=== PATIENT | male | born 1960 | race African-American/Black ===

== ENCOUNTER 2016-10-08 10:59 | Emergency (ER) | payer MEDICAID ==
[2016-10-08 12:15] LABS: UDS - AMPHET NEGATIVE QUAL (NEGATIVE); UDS - BARB NEGATIVE QUAL (NEGATIVE); UDS - BENZO NEGATIVE QUAL (NEGATIVE); UDS - COCAINE NEGATIVE QUAL (NEGATIVE); UDS - METH NEGATIVE QUAL (NEGATIVE); UDS - OPIATE NEGATIVE QUAL (NEGATIVE); UDS - PCP NEGATIVE QUAL (NEGATIVE); UDS - THC POSITIVE QUAL (NEGATIVE)
== END 2016-10-08 12:43 | disposition home or self-care (01) ==
LOC: D.ER 10:59
PROVIDERS: Physician Assistant
DX: F41.9 Anxiety disorder, unspecified (principal); F19.10 Other psychoactive substance abuse, uncomplicated

== ENCOUNTER 2016-12-12 09:49 | Emergency (ER) | payer MEDICAID ==
[2016-12-12 11:13] LABS: BASOPHILS 0.2 % (0-2); EOSINOPHILS 0.5 % (0-7); HEMATOCRIT 48.8 % (42.0-54.0); HEMOGLOBIN 16.4 g/dL (13.5-17.5); IMMATURE GRANULOCYTES 0.3 % (0-5); LYMPHOCYTES 20.2 % (15-50); MCH 33.1 pg (26.0-34.0); MCHC 33.6 g/dL (31.0-37.0); MCV 98.4 fL (80.0-100.0); MEAN PLATELET VOLUME 8.9 fL (7.4-10.4); MONOCYTES 12.3 % (2-11); NEUTROPHILS 66.5 % (40-80); RBC 4.96 10x6/uL (4.20-6.10); WBC 5.8 10x3/uL (4.8-10.8)
[2016-12-12 11:14] LABS: PLATELET COUNT 261 10x3/uL (130-400)
[2016-12-12 11:17] LABS: APPEARANCE HAZY (CLEAR); BILIRUBIN NEGATIVE (NEGATIVE); COLOR YELLOW (YELLOW); GLUCOSE NEGATIVE (NEGATIVE); KETONE MODERATE mg/dL (NEGATIVE); LEUKOCYTE ESTERASE NEGATIVE (NEGATIVE); NITRITE NEGATIVE (NEGATIVE); PROTEIN NEGATIVE (NEGATIVE); SPECIFIC GRAVITY 1.025 (1.005-1.020); UROBILINOGEN NORMAL (NORMAL)
[2016-12-12 11:40] LABS: ALBUMIN 3.4 g/dL (3.4-5.0); ANION GAP 11.7 mmol/L (8-16); BILIRUBIN - TOTAL 0.43 mg/dL (0.2-1.3); CALCIUM 9.4 mg/dL (8.5-10.1); CARBON DIOXIDE 30.5 mmol/L (21.0-32.0); CREATININE - SERUM 1.3 mg/dL (0.6-1.3); POTASSIUM - SERUM 4.2 mmol/L (3.5-5.1)
[2016-12-12 11:45] LABS: UDS - AMPHET NEGATIVE QUAL (NEGATIVE); UDS - BARB NEGATIVE QUAL (NEGATIVE); UDS - BENZO NEGATIVE QUAL (NEGATIVE); UDS - COCAINE NEGATIVE QUAL (NEGATIVE); UDS - METH NEGATIVE QUAL (NEGATIVE); UDS - OPIATE POSITIVE QUAL (NEGATIVE); UDS - PCP NEGATIVE QUAL (NEGATIVE); UDS - THC POSITIVE QUAL (NEGATIVE)
[2016-12-12 11:54] LABS: AMYLASE - SERUM 72 U/L (25-115); CREATINE KINASE 105 UL (21-232); LIPASE 97 U/L (73-393); MAGNESIUM - SERUM 2.4 mg/dL (1.8-2.4); TROPONIN-I < 0.017 ng/mL (0.000-0.060)
== END 2016-12-12 14:08 | disposition home or self-care (01) ==
LOC: D.ER 09:49
PROVIDERS: Emergency Medicine
DX: R10.9 Unspecified abdominal pain (principal); R11.0 Nausea; F17.200 Nicotine dependence, unspecified, uncomplicated

== ENCOUNTER 2017-03-14 08:12 | Observation (INO) | payer MEDICAID ==
[~2017-03-14] VITALS: Ht 154.9 cm; Wt 56.7 kg
[2017-03-14 09:45] LABS: APPEARANCE CLEAR (CLEAR); BACTERIA FEW /hpf (NONE SEEN); BILIRUBIN NEGATIVE (NEGATIVE); COLOR YELLOW (YELLOW); EPITHELIAL CELLS 0-5 /hpf (0-5); GLUCOSE NEGATIVE (NEGATIVE); KETONE NEGATIVE (NEGATIVE); LEUKOCYTE ESTERASE TRACE (NEGATIVE); MUCUS >1+ /lpf (NONE SEEN); NITRITE NEGATIVE (NEGATIVE); PROTEIN NEGATIVE (NEGATIVE); SPECIFIC GRAVITY 1.015 (1.005-1.020); UROBILINOGEN NORMAL (NORMAL); WHITE CELLS - URINE 0-5 /hpf (0-5)
[2017-03-14 09:54] LABS: BASOPHILS 0 % (0-2); EOSINOPHILS 1.1 % (0-7); HEMATOCRIT 42.2 % (42.0-54.0); HEMOGLOBIN 14.2 g/dL (13.5-17.5); LYMPHOCYTES 24.4 % (15-50); MCH 32.2 pg (26.0-34.0); MCHC 33.6 g/dL (31.0-37.0); MCV 95.7 fL (80.0-100.0); MEAN PLATELET VOLUME 8.9 fL (7.4-10.4); MONOCYTES 12.7 % (2-11); NEUTROPHILS 61.8 % (40-80); PLATELET COUNT 228 10x3/uL (130-400); RBC 4.41 10x6/uL (4.20-6.10); RDW 13.3 % (11.5-14.5); WBC 4.4 10x3/uL (4.8-10.8)
[2017-03-14 10:08] LABS: ALBUMIN 2.8 g/dL (3.4-5.0); ALKALINE PHOSPHATASE 48 U/L (46-116); ALT (SGPT) 16 U/L (10-68); BILIRUBIN - TOTAL 0.35 mg/dL (0.2-1.3); CALC OSMOLALITY 274 mosm/kg (275-300); CALCIUM 8.4 mg/dL (8.5-10.1); CARBON DIOXIDE 26.8 mmol/L (21.0-32.0); CHLORIDE - SERUM 102 mmol/L (98-107); GLUCOSE 104 mg/dL (74-106); POTASSIUM - SERUM 3.9 mmol/L (3.5-5.1); SODIUM 138 mmol/L (136-145); UREA NITROGEN 9 mg/dL (7-18); eGFR NON AFRICAN AMERICAN 82 mL/min (90-120)
[2017-03-14 11:19] LABS: AMYLASE - SERUM 85 U/L (25-115); LIPASE 366 U/L (73-393)
[2017-03-14 16:00] VITALS: BP 114/79; BMI 23.6
[2017-03-14 20:00] VITALS: BP 123/85
[2017-03-15] VITALS: BP 120/84
--- NOTE | 2017-03-15 00:31 | NUR ---
PATIENT IS AWAKE, AND ALERT. DENIES NEEDS. RESPIRATIONS ARE EVEN AND UNLABORED ON ROOM AIR. NO SIGNS OF DISTRESS NOTED. BED IN LOWEST POSITION, CALL LIGHT IN REACH. BED RAILS UP X'S 2. CONTACT PRECAUTIONS MAINTAINED. ASLEEP IN BED BESIDE HIM.
[2017-03-15 03:47] VITALS: BP 100/61
[2017-03-15 05:17] LABS: BASOPHILS 0.2 % (0-2); IMMATURE GRANULOCYTES 0.2 % (0-5); LYMPHOCYTES 26.8 % (15-50); MCH 32.4 pg (26.0-34.0); MCHC 33.3 g/dL (31.0-37.0); MCV 97.3 fL (80.0-100.0); MEAN PLATELET VOLUME 9.2 fL (7.4-10.4); NEUTROPHILS 59.8 % (40-80); PLATELET COUNT 237 10x3/uL (130-400); RBC 4.01 10x6/uL (4.20-6.10); RDW 13.5 % (11.5-14.5); WBC 5.2 10x3/uL (4.8-10.8)
[2017-03-15 05:31] LABS: INR 0.88 (0.85-1.17); PROTIME 11.7 SECONDS (11.6-15.0)
[2017-03-15 05:41] LABS: ALBUMIN 2.5 g/dL (3.4-5.0); ANION GAP 12.8 mmol/L (8-16); BILIRUBIN - TOTAL 0.3 mg/dL (0.2-1.3); CALCIUM 8.1 mg/dL (8.5-10.1); CARBON DIOXIDE 25.1 mmol/L (21.0-32.0); CREATININE - SERUM 1.1 mg/dL (0.6-1.3); POTASSIUM - SERUM 3.9 mmol/L (3.5-5.1); PRE-ALBUMIN 26.8 mg/dL (18.0-35.7); PROTEIN - SERUM 4.9 g/dL (6.4-8.2)
--- NOTE | 2017-03-15 07:30 | NUR ---
REPORT RECEIVED FROM BUCK BARTH. CALL LIGHT I \N REACH.
--- NOTE | 2017-03-15 07:30 | NUR ---
REPORT RCEIVED FROM BODY MAKER MACHINE SETTER NURSE. CALL LIGHT IN REACH.
--- NOTE | 2017-03-15 08:36 | NUR ---
ASSESSMENT COMPLETED. NICOTINE PATCH TO LUQ. EXPLAINED ABOUT SCDs BUT REFUSES THEM. NPO FOR PIPIDA SCAN. ALSO EXPLAINED TO PATIENT ABOUT NOT HAVING PAIN MEDS BEFORE PIPIDA. HE VERBALIZED UNDERSTANDING. VERBALIZED UNDERSTANDING. VISITOR AT BEDSIDE. CALL LIGHT IN REACH. WILL CONTINUE WITH PLAN OF CARE.
[2017-03-15 08:42] VITALS: BP 111/75
--- NOTE | 2017-03-15 10:15 | NUR ---
PATIENT OFF FLOOR VIA WHEELCHAIR TO [employer]
[2017-03-15 15:10] VITALS: BP 116/83
[2017-03-15 15:35] VITALS: Ht 154.9 cm; Wt 56.7 kg
--- NOTE | 2017-03-15 19:15 | NUR ---
BEDSIDE REPORT RECEIVED AND CARE OF PT ASSUMED. PT LYING IN SUPINE POSITION WATCHING TV. IV IN LEFT WRIST PATENT WITH D5LR INFUSING AT 75 ML /HR. CONTACT ISOLATION PROTOCOLS IN PLACE. WILL MONITOR CLOSLEY FOR NEEDS.
[2017-03-15 20:00] VITALS: BP 114/73
--- NOTE | 2017-03-15 22:28 | NUR ---
GAVE MORPHINE PER PT REQUEST FOR PAIN AT LEVEL 5/10. WILL CONTINUE TO MONITOR FOR NEEDS.
--- NOTE | 2017-03-15 23:20 | NUR ---
PT SIGNED CONSENTS FOR AM PROCEDURE.
[2017-03-16] VITALS: BP 114/67
--- NOTE | 2017-03-16 | NUR ---
NPO STATUS BEGINS NOW. SIGNAGE ON DOOR.
[2017-03-16 04:00] VITALS: BP 120/80
[2017-03-16 05:58] LABS: BASOPHILS 0.2 % (0-2); EOSINOPHILS 1.1 % (0-7); HEMATOCRIT 36.2 % (42.0-54.0); HEMOGLOBIN 12.1 g/dL (13.5-17.5); IMMATURE GRANULOCYTES 0.2 % (0-5); LYMPHOCYTES 29.5 % (15-50); MCH 32.2 pg (26.0-34.0); MCHC 33.4 g/dL (31.0-37.0); MCV 96.3 fL (80.0-100.0); MEAN PLATELET VOLUME 8.9 fL (7.4-10.4); MONOCYTES 12.7 % (2-11); NEUTROPHILS 56.3 % (40-80); PLATELET COUNT 240 10x3/uL (130-400); RBC 3.76 10x6/uL (4.20-6.10); RDW 13.5 % (11.5-14.5); WBC 5.4 10x3/uL (4.8-10.8)
[2017-03-16 06:20] LABS: ALBUMIN 2.3 g/dL (3.4-5.0); ALKALINE PHOSPHATASE 39 U/L (46-116); ALT (SGPT) 12 U/L (10-68); CALC OSMOLALITY 273 mosm/kg (275-300); CARBON DIOXIDE 27.2 mmol/L (21.0-32.0); CHLORIDE - SERUM 105 mmol/L (98-107); CREATININE - SERUM 0.9 mg/dL (0.6-1.3); GLUCOSE 100 mg/dL (74-106); POTASSIUM - SERUM 4.2 mmol/L (3.5-5.1); SODIUM 138 mmol/L (136-145); UREA NITROGEN 8 mg/dL (7-18); eGFR NON AFRICAN AMERICAN > 90 mL/min (90-120)
--- NOTE | 2017-03-16 07:45 | NUR ---
PT ASSESSMENT PER FLOWSHEET NO ACUTE DISTRESS NOTED VOICES ALL NEEDS TO STAFF PT ON CONTACT ISOLATION FOR BED BUGS NPO AT THIS TIME FOR EGD THIS AM WITH TIVA SCHEDULED FOR 0900. CALL LIGHT IN REACH SIDE RAILS UP X 2.
[2017-03-16 08:09] VITALS: BP 117/77
[2017-03-16 08:18] LABS: HEPATITIS C ANTIBODY <0.1 (0.0-0.9)
[2017-03-16 09:17] LABS: CA 19-9 1 U/mL (0-35); CEA 3.6 ng/mL (0.0-4.7)
--- NOTE | 2017-03-16 09:45 | NUR ---
PT RETURNED TO ROOM FROM GI LAB AWAKE AND ALERT ORIENTED X 3 REMIANS IN CONTACT ISOLATION .
--- NOTE | 2017-03-16 11:00 | NUR ---
PT WITH DISCHARGE ORDERS ASKING FOR ASSISTANCE WITH TRANSPORT HOME REFERED TO CASE MANAGMENT.
[2017-03-16] MEDS ORDERED: PROTONIX40 MG PO (11:29)
[2017-03-16] MEDS ORDERED: CARAFATE1 G PO (11:29)
[2017-03-16 11:44] VITALS: BP 124/90
--- NOTE | 2017-03-16 12:30 | NUR ---
PATIENT SITTING UP ON SIDE OF BED ALERT. NO SIGNS OF DISTRESS NOTED. BED IN LOW POSITION. CALL LIGHT IN REACH.
--- NOTE | 2017-03-16 14:01 | NUR ---
PT GIVEN DISCHARGE INSTRUCTIONS WELL ALL EDUCATION ABOUT NEW MEDICATIONS. EXPRESSED UNDERSTANDING. PIV D/C INTACT DRESSING APPLIED. PT GIVEN BUS TICKET FOR PUBLIC TRANSPORT BUS PER REQUEST.
--- NOTE | 2017-03-18 13:53 | OP ---
PATIENT NAME: ROXANNE MYERS MEDICAL RECORD: [id number] :62 LOCATION:[id number] ADMISSION DATE:03/14/17 SURGEON: REYNOLD RICO MD DATE OF OPERATION: 03/16/2017 PROCEDURE: EGD with biopsy. ATTENDING PHYSICIAN: Katelyn Ramirez MD. INDICATIONS: Mr. Myers is a 57-year-old gentleman, who was admitted secondary to symptoms of nausea, vomiting, epigastric pain. He had an abdominal and pelvic CT scan on March 14 with findings showing a dilated main pancreatic duct concerning for stricture or mass. Liver function test, amylase and lipase were normal. Follow up abdominal MRI on 03/14/2017 showed mild prominent pancreatic duct without an identifiable stricture or mass in the region of the head of the pancreas. A gallbladder ultrasound on 03/15/2017 showed no sonographic evidence of cholelithiasis or cholecystitis and there is no intrahepatic biliary dilatation seen. Hepatobiliary scan with gallbladder ejection fraction on 03/15/2017 showed the bile ducts to be patent and the gallbladder ejection fraction mildly decreased at 31% (no reproduction of abdominal pain). He presents for inpatient EGD to further evaluate his symptoms of upper abdominal pain. PREMEDICATIONS: Total IV anesthesia (propofol 175 mg). INSTRUMENT: Olympus video gastroscope. PROCEDURE AND FINDINGS: After receiving informed consent, Mr. Myers's posterior pharynx was anesthetized with Cetacaine spray, placed in left lateral decubitus position and sedated as per anesthesia. After achieving adequate level of sedation, gastroscope was introduced per orally and advanced to the duodenum without difficulty. The esophageal mucosa was without erythema, ulcers, strictures or masses, appeared normal through the GE junction. There were a few erosions scattered in the antrum, nonhemorrhagic and antral biopsies were obtained to rule out Helicobacter pylori. No lesions were seen in the body of the stomach along the incisura or the cardia or fundus. Pylorus was patent and competent. The duodenal bulbar mucosa was notable for moderate erythema and at the apex of the bulb was a clean white based ulcer, nonhemorrhagic and nonobstructive. I was able to pass the gastroscope easily beyond the ulcer into the second portion of duodenum where the mucosa was unremarkable and appeared normal. Gastroscope was then withdrawn. Mr. Myers tolerated the procedure well. No immediate complications. ASSESSMENT: 1. Mild erosive gastritis. 2. Duodenitis. 3. Duodenal ulcer, likely source of abdominal pain, rule out Helicobacter pylori. RECOMMENDATIONS: 1. Avoid nonsteroidal anti-inflammatory drugs. 2. Protonix 40 mg p.o. b.i.d. for 1 month, then daily for 3 months. 3. Carafate 1 gram 4 times a day for 1 month and discontinue. 4. Follow up histopathology. 5. Advance diet. OPERATIVE REPORT [id number] ROXANNE MYERS TRANSINT:[id number] Voice Confirmation ID: [id number] DOCUMENT ID: [id number] REYNOLD RICO MD at 1353 CC: KATELYN RAMIREZ MD [id number] DICTATION DATE: 03/16/17 1020 STORE HOST: 03/16/172023 DIS IN 03/16/17 [facility] [address] [place] [address]
== END 2017-03-16 14:03 | disposition home or self-care (01) ==
LOC: D.ER 08:12 → OBSVTIME 14:41 → D.MS 14:41
PROVIDERS: Emergency Medicine; Internal Medicine Gastroenterology; ADMIT Family Medicine
DX: K29.60 Other gastritis without bleeding (principal); K29.80 Duodenitis without bleeding; K86.89 Other specified diseases of pancreas; K26.9 Duodenal ulcer, unspecified as acute or chronic, without hemorrhage or perforation

== ENCOUNTER 2017-05-30 03:31 | Emergency (ER) | payer MEDICAID ==
[2017-03-15 15:35] VITALS: BMI 23.6
[~2017-05-30 03:31] MED LIST: CARAFATE1 G PO; PROTONIX40 MG PO
[2017-05-30 04:27] LABS: BASOPHILS 0 % (0-2); EOSINOPHILS 1.5 % (0-7); HEMATOCRIT 41.8 % (42.0-54.0); HEMOGLOBIN 14.1 g/dL (13.5-17.5); IMMATURE GRANULOCYTES 0.2 % (0-5); LYMPHOCYTES 19.1 % (15-50); MCH 31.1 pg (26.0-34.0); MCHC 33.7 g/dL (31.0-37.0); MCV 92.1 fL (80.0-100.0); MEAN PLATELET VOLUME 9.1 fL (7.4-10.4); MONOCYTES 14.1 % (2-11); NEUTROPHILS 65.1 % (40-80); RBC 4.54 10x6/uL (4.20-6.10); RDW 15.2 % (11.5-14.5); WBC 5.2 10x3/uL (4.8-10.8)
[2017-05-30 04:28] LABS: PLATELET COUNT 294 10x3/uL (130-400)
[2017-05-30 04:29] LABS: UDS - AMPHET NEGATIVE QUAL (NEGATIVE); UDS - BARB NEGATIVE QUAL (NEGATIVE); UDS - BENZO NEGATIVE QUAL (NEGATIVE); UDS - COCAINE NEGATIVE QUAL (NEGATIVE); UDS - OPIATE NEGATIVE QUAL (NEGATIVE); UDS - PCP NEGATIVE QUAL (NEGATIVE); UDS - THC POSITIVE QUAL (NEGATIVE)
[2017-05-30 04:31] LABS: APPEARANCE CLEAR (CLEAR); BILIRUBIN NEGATIVE (NEGATIVE); COLOR YELLOW (YELLOW); GLUCOSE NEGATIVE (NEGATIVE); KETONE MODERATE mg/dL (NEGATIVE); NITRITE NEGATIVE (NEGATIVE); PROTEIN 1+ mg/dL (NEGATIVE); UROBILINOGEN NORMAL (NORMAL)
[2017-05-30 04:32] LABS: BACTERIA FEW /hpf (NONE SEEN); EPITHELIAL CELLS 0-5 /hpf (0-5); MUCUS <1+ /lpf (NONE SEEN); RED CELLS - URINE 0-5 /hpf (0-5); WHITE CELLS - URINE 0-5 /hpf (0-5)
[2017-05-30 04:53] LABS: ALBUMIN 3.6 g/dL (3.4-5.0); ALKALINE PHOSPHATASE 69 U/L (46-116); ALT (SGPT) 21 U/L (10-68); AMYLASE - SERUM 67 U/L (25-115); BILIRUBIN - TOTAL 0.77 mg/dL (0.2-1.3); CALC OSMOLALITY 273 mosm/kg (275-300); CARBON DIOXIDE 28.4 mmol/L (21.0-32.0); CHLORIDE - SERUM 97 mmol/L (98-107); GLUCOSE 103 mg/dL (74-106); LIPASE 125 U/L (73-393); POTASSIUM - SERUM 3.9 mmol/L (3.5-5.1); SODIUM 137 mmol/L (136-145); UREA NITROGEN 12 mg/dL (7-18); eGFR NON AFRICAN AMERICAN 82 mL/min (90-120)
== END 2017-05-30 06:29 | disposition home or self-care (01) ==
LOC: D.ER 03:31
PROVIDERS: Family Medicine
DX: K29.00 Acute gastritis without bleeding (principal); F17.200 Nicotine dependence, unspecified, uncomplicated

== ENCOUNTER 2017-07-18 10:46 | Emergency (ER) | payer MEDICAID ==
[2017-03-15 15:35] VITALS: BMI 23.6
== END 2017-07-18 14:20 | disposition home or self-care (01) ==
LOC: D.ER 10:46
DX: M54.5 Low back pain (principal); Z87.19 Personal history of other diseases of the digestive system; F17.200 Nicotine dependence, unspecified, uncomplicated

== ENCOUNTER 2017-09-18 20:10 | Emergency (ER) | payer MEDICAID ==
[2017-03-15 15:35] VITALS: BMI 23.6
[2017-09-18 20:53] LABS: BASOPHILS 0.1 % (0-2); EOSINOPHILS 0.2 % (0-7); HEMATOCRIT 41.7 % (42.0-54.0); HEMOGLOBIN 13.9 g/dL (13.5-17.5); IMMATURE GRANULOCYTES 0.2 % (0-5); MCHC 33.3 g/dL (31.0-37.0); MCV 93.1 fL (80.0-100.0); MEAN PLATELET VOLUME 8.7 fL (7.4-10.4); MONOCYTES 9.3 % (2-11); NEUTROPHILS 76.2 % (40-80); RBC 4.48 10x6/uL (4.20-6.10); WBC 8.5 10x3/uL (4.8-10.8)
[2017-09-18 21:08] LABS: ANION GAP 16.9 mmol/L (8-16); BILIRUBIN - TOTAL 0.55 mg/dL (0.2-1.3); CALCIUM 8.3 mg/dL (8.5-10.1); CARBON DIOXIDE 24.5 mmol/L (21.0-32.0); CREATININE - SERUM 1.3 mg/dL (0.6-1.3); POTASSIUM - SERUM 4.4 mmol/L (3.5-5.1); PROTEIN - SERUM 6.1 g/dL (6.4-8.2)
[2017-09-18 21:23] LABS: PLATELET COUNT 213 10x3/uL (130-400)
== END 2017-09-18 23:00 | disposition home or self-care (01) ==
LOC: D.ER 20:10
PROVIDERS: Emergency Medicine
DX: R10.13 Epigastric pain (principal); R10.12 Left upper quadrant pain; F17.200 Nicotine dependence, unspecified, uncomplicated

== ENCOUNTER 2017-09-27 00:58 | Emergency (ER) | payer MEDICAID ==
[2017-03-15 15:35] VITALS: BMI 23.6
== END 2017-09-27 01:30 | disposition left against medical advice (07) ==
LOC: D.ER 00:58
DX: K08.89 Other specified disorders of teeth and supporting structures (principal)

== ENCOUNTER 2017-10-30 20:25 | Emergency (ER) | payer MEDICAID ==
[2017-03-15 15:35] VITALS: BMI 23.6
[2017-10-30 20:48] LABS: APPEARANCE CLEAR (CLEAR); BILIRUBIN NEGATIVE (NEGATIVE); COLOR YELLOW (YELLOW); GLUCOSE NEGATIVE (NEGATIVE); KETONE NEGATIVE (NEGATIVE); NITRITE NEGATIVE (NEGATIVE); PROTEIN NEGATIVE (NEGATIVE); UROBILINOGEN NORMAL (NORMAL)
[2017-10-30 21:21] LABS: BASOPHILS 0.4 % (0-2); EOSINOPHILS 1.2 % (0-7); HEMATOCRIT 34.8 % (42.0-54.0); HEMOGLOBIN 11.3 g/dL (13.5-17.5); IMMATURE GRANULOCYTES 0.2 % (0-5); LYMPHOCYTES 23.6 % (15-50); MCH 29.4 pg (26.0-34.0); MCHC 32.5 g/dL (31.0-37.0); MCV 90.6 fL (80.0-100.0); MEAN PLATELET VOLUME 8.5 fL (7.4-10.4); MONOCYTES 8.9 % (2-11); NEUTROPHILS 65.7 % (40-80); PLATELET COUNT 243 10x3/uL (130-400); RBC 3.84 10x6/uL (4.20-6.10); RDW 16.8 % (11.5-14.5)
[2017-10-30 21:31] LABS: ALBUMIN 3.1 g/dL (3.4-5.0); ANION GAP 18.8 mmol/L (8-16); BILIRUBIN - TOTAL 0.2 mg/dL (0.2-1.3); CALCIUM 8.5 mg/dL (8.5-10.1); CARBON DIOXIDE 22.3 mmol/L (21.0-32.0); CREATININE - SERUM 1.2 mg/dL (0.6-1.3); POTASSIUM - SERUM 3.1 mmol/L (3.5-5.1); PROTEIN - SERUM 6.9 g/dL (6.4-8.2)
[2017-10-30 21:50] LABS: UDS - AMPHET NEGATIVE QUAL (NEGATIVE); UDS - BARB NEGATIVE QUAL (NEGATIVE); UDS - BENZO NEGATIVE QUAL (NEGATIVE); UDS - COCAINE POSITIVE QUAL (NEGATIVE); UDS - OPIATE POSITIVE QUAL (NEGATIVE); UDS - PCP NEGATIVE QUAL (NEGATIVE); UDS - THC POSITIVE QUAL (NEGATIVE)
== END 2017-10-30 23:05 | disposition home or self-care (01) ==
LOC: D.ER 20:25
PROVIDERS: Family Medicine
DX: F14.10 Cocaine abuse, uncomplicated (principal); E87.6 Hypokalemia; F17.200 Nicotine dependence, unspecified, uncomplicated

== ENCOUNTER 2017-11-23 08:21 | Emergency (ER) | payer MEDICAID ==
[2017-03-15 15:35] VITALS: BMI 23.6
[2017-11-23 08:53] LABS: BASOPHILS 0 % (0-2); EOSINOPHILS 0.2 % (0-7); HEMATOCRIT 41.9 % (42.0-54.0); HEMOGLOBIN 13.8 g/dL (13.5-17.5); IMMATURE GRANULOCYTES 0.2 % (0-5); MCH 29.7 pg (26.0-34.0); MCHC 32.9 g/dL (31.0-37.0); MCV 90.1 fL (80.0-100.0); MEAN PLATELET VOLUME 8.7 fL (7.4-10.4); NEUTROPHILS 82.6 % (40-80); PLATELET COUNT 246 10x3/uL (130-400); RBC 4.65 10x6/uL (4.20-6.10); RDW 16.8 % (11.5-14.5); WBC 10.1 10x3/uL (4.8-10.8)
[2017-11-23 09:10] LABS: ALBUMIN 3.4 g/dL (3.4-5.0); ANION GAP 18.2 mmol/L (8-16); BILIRUBIN - TOTAL 0.93 mg/dL (0.2-1.3); CALCIUM 8.7 mg/dL (8.5-10.1); CREATININE - SERUM 1.3 mg/dL (0.6-1.3); POTASSIUM - SERUM 4.2 mmol/L (3.5-5.1); PROTEIN - SERUM 7.3 g/dL (6.4-8.2)
[2017-11-23 10:16] LABS: APPEARANCE SLT CLOUDY (CLEAR); BACTERIA MODERATE /hpf (NONE SEEN); BILIRUBIN NEGATIVE (NEGATIVE); COLOR DK YELLOW (YELLOW); EPITHELIAL CELLS 0-5 /hpf (0-5); GLUCOSE NEGATIVE (NEGATIVE); KETONE LARGE mg/dL (NEGATIVE); MUCUS >1+ /lpf (NONE SEEN); NITRITE NEGATIVE (NEGATIVE); PROTEIN NEGATIVE (NEGATIVE); SPECIFIC GRAVITY 1.025 (1.005-1.020); UROBILINOGEN NORMAL (NORMAL)
== END 2017-11-23 11:08 | disposition home or self-care (01) ==
LOC: D.ER 08:21
PROVIDERS: Emergency Medicine
DX: R10.9 Unspecified abdominal pain (principal); N39.0 Urinary tract infection, site not specified; F17.200 Nicotine dependence, unspecified, uncomplicated

== ENCOUNTER 2018-05-31 08:44 | Emergency (ER) | payer MEDICAID ==
[~2018-05-31] VITALS: Ht 154.9 cm; Wt 54.5 kg
[2018-05-31 08:48] VITALS: Ht 154.9 cm; Wt 54.5 kg
[2018-05-31 09:10] LABS: BASOPHILS 0.2 % (0-2); EOSINOPHILS 0.6 % (0-7); HEMATOCRIT 35.7 % (42.0-54.0); HEMOGLOBIN 11.4 g/dL (13.5-17.5); LYMPHOCYTES 18.3 % (15-50); MCH 25.9 pg (26.0-34.0); MCHC 31.9 g/dL (31.0-37.0); MCV 81.1 fL (80.0-100.0); MEAN PLATELET VOLUME 8.2 fL (7.4-10.4); MONOCYTES 13.9 % (2-11); RDW 19.3 % (11.5-14.5)
[2018-05-31 09:22] LABS: PLATELET COUNT 305 10x3/uL (130-400)
[2018-05-31 09:25] LABS: APPEARANCE CLEAR (CLEAR); BACTERIA FEW /hpf (NONE SEEN); BILIRUBIN NEGATIVE (NEGATIVE); COLOR YELLOW (YELLOW); EPITHELIAL CELLS OCC /hpf (0-5); GLUCOSE NEGATIVE (NEGATIVE); HYALINE CAST 0-5 /lpf (NONE SEEN); KETONE NEGATIVE (NEGATIVE); MUCUS >1+ /lpf (NONE SEEN); NITRITE NEGATIVE (NEGATIVE); PROTEIN TRACE mg/dL (NEGATIVE); RED CELLS - URINE OCC /hpf (0-5); SPECIFIC GRAVITY 1.025 (1.005-1.020); UROBILINOGEN NORMAL (NORMAL); WHITE CELLS - URINE 0-5 /hpf (0-5)
[2018-05-31 09:33] LABS: ALBUMIN 3.7 g/dL (3.4-5.0); ANION GAP 16.9 mmol/L (8-16); BILIRUBIN - TOTAL 0.29 mg/dL (0.2-1.3); CALCIUM 9.2 mg/dL (8.5-10.1); CARBON DIOXIDE 23.3 mmol/L (21.0-32.0); CREATININE - SERUM 1.1 mg/dL (0.6-1.3); POTASSIUM - SERUM 4.2 mmol/L (3.5-5.1); PROTEIN - SERUM 7.3 g/dL (6.4-8.2)
[2018-05-31] MEDS ORDERED: CARAFATE1 G PO (13:35)
[2018-05-31] MEDS ORDERED: ZANTAC300 MG PO (13:35)
[2018-05-31] MEDS ORDERED: PROTONIX40 MG PO (13:35)
[2018-05-31] MEDS ORDERED: LEVSIN/ANASP0.125 MG PO (13:37)
[2018-05-31 14:17] VITALS: BP 139/99
== END 2018-05-31 14:10 | disposition home or self-care (01) ==
LOC: D.ER 08:44
PROVIDERS: Family Medicine
DX: R10.9 Unspecified abdominal pain (principal); F10.10 Alcohol abuse, uncomplicated; K29.20 Alcoholic gastritis without bleeding; K21.9 Gastro-esophageal reflux disease without esophagitis; F17.200 Nicotine dependence, unspecified, uncomplicated

== ENCOUNTER 2018-07-23 10:59 | Emergency (ER) | payer MEDICAID ==
[~2018-07-23] VITALS: Ht 154.9 cm; Wt 54.5 kg
[~2018-07-23 10:59] MED LIST changes: +LEVSIN/ANASP0.125 MG PO; +ZANTAC300 MG PO
[2018-07-23 11:08] VITALS: Ht 154.9 cm; Wt 54.5 kg
[2018-07-23 11:34] LABS: APPEARANCE HAZY (CLEAR); BACTERIA FEW /hpf (NONE SEEN); BILIRUBIN NEGATIVE (NEGATIVE); COLOR YELLOW (YELLOW); EPITHELIAL CELLS OCC /hpf (0-5); GLUCOSE NEGATIVE (NEGATIVE); KETONE MODERATE mg/dL (NEGATIVE); MUCUS >1+ /lpf (NONE SEEN); NITRITE NEGATIVE (NEGATIVE); PROTEIN NEGATIVE (NEGATIVE); RED CELLS - URINE RARE /hpf (0-5); SPECIFIC GRAVITY 1.025 (1.005-1.020); UROBILINOGEN NORMAL (NORMAL); WHITE CELLS - URINE RARE /hpf (0-5)
[2018-07-23 11:56] LABS: BASOPHILS 0.1 % (0-2); EOSINOPHILS 0.1 % (0-7); HEMATOCRIT 37.3 % (42.0-54.0); HEMOGLOBIN 11.9 g/dL (13.5-17.5); IMMATURE GRANULOCYTES 0.2 % (0-5); LYMPHOCYTES 8.4 % (15-50); MCH 26.5 pg (26.0-34.0); MCHC 31.9 g/dL (31.0-37.0); MCV 83.1 fL (80.0-100.0); MEAN PLATELET VOLUME 8.4 fL (7.4-10.4); MONOCYTES 8.6 % (2-11); NEUTROPHILS 82.6 % (40-80); PLATELET COUNT 307 10x3/uL (130-400); RBC 4.49 10x6/uL (4.20-6.10); RDW 20.9 % (11.5-14.5); WBC 10.8 10x3/uL (4.8-10.8)
[2018-07-23 12:09] LABS: ALBUMIN 3.6 g/dL (3.4-5.0); ALKALINE PHOSPHATASE 57 U/L (46-116); ALT (SGPT) 23 U/L (10-68); BILIRUBIN - TOTAL 0.58 mg/dL (0.2-1.3); CALC OSMOLALITY 269 mosm/kg (275-300); CALCIUM 8.8 mg/dL (8.5-10.1); CHLORIDE - SERUM 99 mmol/L (98-107); GLUCOSE 74 mg/dL (74-106); POTASSIUM - SERUM 4.6 mmol/L (3.5-5.1); SODIUM 135 mmol/L (136-145); UREA NITROGEN 15 mg/dL (7-18); eGFR NON AFRICAN AMERICAN 82 mL/min (90-120)
[2018-07-23 12:22] LABS: AMYLASE - SERUM 65 U/L (25-115); CREATINE KINASE 242 UL (21-232); LIPASE 107 U/L (73-393)
[2018-07-23 12:23] LABS: TROPONIN-I < 0.017 ng/mL (0.000-0.060)
[2018-07-23] MEDS ORDERED: PROTONIX40 MG PO (14:07)
[2018-07-23] MEDS ORDERED: CARAFATE1 G PO (14:07)
[2018-07-23 14:55] VITALS: BP 134/83
== END 2018-07-23 14:56 | disposition home or self-care (01) ==
LOC: D.ER 10:59
PROVIDERS: Family Medicine
DX: K29.70 Gastritis, unspecified, without bleeding (principal); R10.10 Upper abdominal pain, unspecified; F17.200 Nicotine dependence, unspecified, uncomplicated

== ENCOUNTER 2019-03-11 10:55 | Inpatient (IN) | payer MEDICAID ==
[~2019-03-11] VITALS: Ht 154.9 cm; Wt 54.0 kg
[2019-03-11 11:54] LABS: BASOPHILS 0.3 % (0-2); EOSINOPHILS 0.3 % (0-7); HEMATOCRIT 38.5 % (42.0-54.0); HEMOGLOBIN 12.5 g/dL (13.5-17.5); IMMATURE GRANULOCYTES 0.3 % (0-5); LYMPHOCYTES 19.4 % (15-50); MCHC 32.5 g/dL (31.0-37.0); MCV 80.2 fL (80.0-100.0); MONOCYTES 10.4 % (2-11); NEUTROPHILS 69.3 % (40-80); PLATELET COUNT 271 10x3/uL (130-400); RDW 20.1 % (11.5-14.5); WBC 7.6 10x3/uL (4.8-10.8)
[2019-03-11 12:15] LABS: ALBUMIN 2.9 g/dL (3.4-5.0); ALKALINE PHOSPHATASE 46 U/L (46-116); ALT (SGPT) 15 U/L (10-68); AMYLASE - SERUM 82 U/L (25-115); CALCIUM 8.4 mg/dL (8.5-10.1); CHLORIDE - SERUM 103 mmol/L (98-107); CREATININE - SERUM 1.2 mg/dL (0.6-1.3); LIPASE 483 U/L (73-393); POTASSIUM - SERUM 4.3 mmol/L (3.5-5.1); PROTEIN - SERUM 6.3 g/dL (6.4-8.2); SODIUM 137 mmol/L (136-145); UREA NITROGEN 12 mg/dL (7-18); eGFR NON AFRICAN AMERICAN 66 mL/min (90-120)
[2019-03-11 12:20] LABS: COLOR DK YELLOW (YELLOW)
[2019-03-11 12:21] LABS: APPEARANCE HAZY (CLEAR); BILIRUBIN NEGATIVE (NEGATIVE); CALC OSMOLALITY 274 mosm/kg (275-300); GLUCOSE 123 mg/dL (74-106); GLUCOSE NEGATIVE (NEGATIVE); KETONE SMALL mg/dL (NEGATIVE); NITRITE NEGATIVE (NEGATIVE); PROTEIN TRACE mg/dL (NEGATIVE); SPECIFIC GRAVITY 1.025 (1.005-1.020); TROPONIN-I < 0.017 ng/mL (0.000-0.060)
[2019-03-11 12:23] LABS: BACTERIA FEW /hpf (NONE SEEN); EPITHELIAL CELLS RARE /hpf (0-5); MUCUS >1+ /lpf (NONE SEEN); RED CELLS - URINE RARE /hpf (0-5); WHITE CELLS - URINE 0-5 /hpf (0-5)
--- NOTE | 2019-03-11 20:22 | NUR ---
REC'D PATIENT TO THE FLOOR FROM ER. NO S/S OF DISTRESS. PATIENT RESTING IN BED AND DENIES NEEDS AT THIS TIME. BED IN LOWEST POSITION AND CALL LIGHT WITHIN REACH. ENCOURAGED THE PATIENT TO CALL IF HE HAS NEEDS. WILL CONTINUE TO MONITOR.
[2019-03-11 22:57] VITALS: BP 122/86
[2019-03-12 02:59] VITALS: BP 122/86; BMI 21.7
[2019-03-12 05:52] VITALS: BP 133/95
[2019-03-12 07:18] LABS: BASOPHILS 0.3 % (0-2); EOSINOPHILS 1.3 % (0-7); HEMATOCRIT 33.5 % (42.0-54.0); HEMOGLOBIN 10.6 g/dL (13.5-17.5); IMMATURE GRANULOCYTES 0.1 % (0-5); LYMPHOCYTES 19.9 % (15-50); MCH 25.5 pg (26.0-34.0); MCHC 31.6 g/dL (31.0-37.0); MCV 80.7 fL (80.0-100.0); MEAN PLATELET VOLUME 7.9 fL (7.4-10.4); NEUTROPHILS 68.4 % (40-80); PLATELET COUNT 262 10x3/uL (130-400); RBC 4.15 10x6/uL (4.20-6.10); RDW 20.4 % (11.5-14.5); WBC 7.1 10x3/uL (4.8-10.8)
--- NOTE | 2019-03-12 07:30 | NUR ---
AWAKE AND ALERT. NO C/O AT THIS TIME. VSS.
[2019-03-12 07:34] LABS: ALBUMIN 2.3 g/dL (3.4-5.0); ALKALINE PHOSPHATASE 39 U/L (46-116); ALT (SGPT) 12 U/L (10-68); BILIRUBIN - TOTAL 0.25 mg/dL (0.2-1.3); CALC OSMOLALITY 275 mosm/kg (275-300); CALCIUM 7.5 mg/dL (8.5-10.1); CARBON DIOXIDE 23.9 mmol/L (21.0-32.0); CHLORIDE - SERUM 108 mmol/L (98-107); GLUCOSE 90 mg/dL (74-106); LIPASE 973 U/L (73-393); POTASSIUM - SERUM 3.9 mmol/L (3.5-5.1); SODIUM 139 mmol/L (136-145); eGFR NON AFRICAN AMERICAN 81 mL/min (90-120)
[2019-03-12 07:35] LABS: AMYLASE - SERUM 126 U/L (25-115); UREA NITROGEN 7 mg/dL (7-18)
[2019-03-12 07:36] VITALS: BP 131/86
--- NOTE | 2019-03-12 08:00 | NUR ---
AWAKE AND ALERT. ORIENTED X3. NO C/O AT THIS TIME EXCEPT BEING HUNGRY. LUNGS ARE CLEAR BILATERALLY, NO COUGH NOTED. SKIN IS INTACT WITHOUT REDNESS. IV TO RIGHT FOREARM IS PATENT WTIHOUT REDNESS AT INSERTION SITE. DENIES NEEDS.
--- NOTE | 2019-03-12 09:51 | MORECARE ---
CASE MANAGEMENT DISCHARGE SUMMARY PATIENT: ROXANNE MYERS UNIT: [id number] ADM DATE: 03/11/19 AGE: 59 : 62 SEX: M ROOM/BED: D.1203 AUTHOR: RAJIV,DOC PHYSICIAN: REFERRING PHYSICIAN: ANGIE SHAH MD DATE OF SERVICE: 03/12/19 Discharge Plan Patient Name: ROXANNE MYERS Facility: [facility]:[place] : 1960 Planned Disposition: Home Anticipated Discharge Date: Discharge Date: Expected LOS: Initial Reviewer: [email or web address] Initial Review Date: 03/12/2019 Generated: 03/12/19 10:51 am Comments DCP- Discharge Planning Updated by [email or web address]: Carmen Gillespie on 03/12/19 8:[address] Patient Name: ROXANNE MYERS Admission Status: ER Accout number: [id number] Admission Date: 03-11-2019 : 1960 Admission Diagnosis: Attending: OSVALDO SHAH Current LOS: 1 Anticipated DC Date: Planned Disposition: Home Primary Insurance: [employer] Discharge Planning Comments: CM met with patient to complete initial dc planning assessment. CM educated patient on the CM role and verbal consent given by patient to complete assessment. CM verified patient's address, phone number, and emergency contact phone numbers. Patient lives at home alone and reports he is independent in his care. At discharge patient plans to return home and feels this is a safe discharge. CM discussed availability of home health, rehab services, and medical equipment. Patient denied known discharge needs at this time.. . CM will continue to follow and will assist as needed with dc plans/needs. Cloth Printer Helper: Carmen GillespiePatient Name: ROXANNE MYERS Admission Status: ER Accout number: [id number] Admission Date: 03-11-2019 : 1960 Admission Diagnosis: Attending: OSVALDO SHAH Current LOS: 1 Anticipated DC Date: Planned Disposition: Home Primary Insurance: [employer] Discharge Planning Comments: Cloth Printer Helper: Carmen Gillespie DCPIA - Discharge Planning Initial Assessment Updated by [email or web address]: Carmen Gillespie on 03/12/19 9:44 am * Is the patient Alert and Oriented? Yes * How many steps to enter\exit or inside your home? * PCP none * Pharmacy [facility] * Preadmission Environment Home Alone * ADLs Independent * Verbal permission to speak to the caregivers and representatives has been obtained from the patient. N/A * Additional services required to return to the preadmission environment? No * Can the patient safely return to the preadmission environment? Yes * Has this patient been hospitalized within the prior 30 days at any hospital? No Patient Name: ROXANNE MYERS Page [phone] at 0951 All edits/amendments must be made on the electronic document DICTATION DATE: 03/12/19950 WET AND DRY SUGAR BIN OPERATOR: JOSEPHINE 03/12/19950 RPT#: [id number] DC DATE: STATUS: ADM IN [facility] [address] [place] [address] END OF REPORT
--- NOTE | 2019-03-12 11:15 | NUR ---
REQUESTED AND GIVEN 4MG MORPHINE SLOW IVP FOR C/O UPPER ABDOMINAL/CHEST PAIN LEVEL 8. WILL MONITOR.
[2019-03-12 12:25] VITALS: BP 123/90
--- NOTE | 2019-03-12 13:02 | NUR ---
URINE SPECIMEN COLLECTED AND SENT TO LAB.
[2019-03-12 13:39] VITALS: Ht 154.9 cm; Wt 54.0 kg
[2019-03-12 13:49] LABS: UDS - AMPHET NEGATIVE QUAL (NEGATIVE); UDS - BARB NEGATIVE QUAL (NEGATIVE); UDS - BENZO NEGATIVE QUAL (NEGATIVE); UDS - COCAINE NEGATIVE QUAL (NEGATIVE); UDS - OPIATE POSITIVE QUAL (NEGATIVE); UDS - PCP NEGATIVE QUAL (NEGATIVE); UDS - THC POSITIVE QUAL (NEGATIVE)
[2019-03-12 17:12] VITALS: BP 130/93
--- NOTE | 2019-03-12 17:12 | NUR ---
REQUESTED AND GIVEN 4MG MORPHINE SLOW IVP FOR C/O ABDOMINAL PAIN LEVEL 9. WILL MONITOR.
--- NOTE | 2019-03-12 17:52 | NUR ---
RESTING QUIETLY IN BED. DENIES NEEDS. NO CHANGES NOTED.
[2019-03-12 19:27] VITALS: BP 108/76
--- NOTE | 2019-03-12 19:45 | NUR ---
EVENING ROUNDS COMPLETED. VSS, AAOX3, NO S/S OF DISTRESS. PT C/O ABD PAIN. STATE ITS A 03/30 AT THIS TIME. NOTIFIED PT THAT PRN PAIN MED WILL BE ADMINISTERED WHEN DUE. PT STILL NPO. BANNA BAG INFUSING @ 125MLS/HR. WILL CPOC. CL WITHIN REACH.
[2019-03-13 00:21] VITALS: BP 119/78
[2019-03-13 05:10] VITALS: BP 113/65
[2019-03-13 06:08] LABS: BASOPHILS 0.2 % (0-2); EOSINOPHILS 1.7 % (0-7); HEMATOCRIT 30.8 % (42.0-54.0); HEMOGLOBIN 9.7 g/dL (13.5-17.5); IMMATURE GRANULOCYTES 0.2 % (0-5); LYMPHOCYTES 28.2 % (15-50); MCH 25.5 pg (26.0-34.0); MCHC 31.5 g/dL (31.0-37.0); MCV 80.8 fL (80.0-100.0); MONOCYTES 11.8 % (2-11); NEUTROPHILS 57.9 % (40-80); PLATELET COUNT 259 10x3/uL (130-400); RBC 3.81 10x6/uL (4.20-6.10); RDW 20.6 % (11.5-14.5)
[2019-03-13 06:25] LABS: ALKALINE PHOSPHATASE 31 U/L (46-116); BILIRUBIN - TOTAL 0.19 mg/dL (0.2-1.3); CALC OSMOLALITY 274 mosm/kg (275-300); CALCIUM 7.2 mg/dL (8.5-10.1); CARBON DIOXIDE 23.2 mmol/L (21.0-32.0); CHLORIDE - SERUM 109 mmol/L (98-107); CREATININE - SERUM 0.9 mg/dL (0.6-1.3); GLUCOSE 79 mg/dL (74-106); LIPASE 101 U/L (73-393); POTASSIUM - SERUM 3.8 mmol/L (3.5-5.1); PROTEIN - SERUM 4.4 g/dL (6.4-8.2); SODIUM 139 mmol/L (136-145); UREA NITROGEN 6 mg/dL (7-18); eGFR NON AFRICAN AMERICAN > 90 mL/min (90-120)
[2019-03-13 06:26] LABS: ALT (SGPT) 17 U/L (10-68); AMYLASE - SERUM 61 U/L (25-115)
[2019-03-13 06:34] LABS: WBC 4.8 10x3/uL (4.8-10.8)
[2019-03-13 07:58] VITALS: BP 128/90
--- NOTE | 2019-03-13 08:00 | NUR ---
PT RESTING IN BED, SHIFT ASSESSMENT PERFORMED. DENIES ANY NEEDS AT THIS TIME. WILL CONT TO FOLLOW POC
[2019-03-13 11:48] VITALS: BP 132/84
[2019-03-13] MEDS ORDERED: Nicoderm [PBKC] TRANSDERM (15:18)
--- NOTE | 2019-03-13 17:29 | NUR ---
DISCHARGE INSTRUCTIONS REVIEWED WITH PT AND ALL QUESTIONS ANSWERED. PIV REMOVED WITH CATHETER TIP INTACT. TELEMETRY REMOVED AND GIVEN TO CLINICAL STAFF EDUCATOR. ASSISTED PT TO FRONT OF HOSPITAL VIA WHEELCHAIR WHERE HE LEFT WITH FRIEND
--- NOTE | 2019-03-13 18:32 | MORECARE ---
CASE MANAGEMENT DISCHARGE SUMMARY PATIENT: ROXANNE MYERS UNIT: [id number] ADM DATE: 03/11/19 AGE: 59 : 62 SEX: M ROOM/BED: D.1203 AUTHOR: RAJIV,DOC PHYSICIAN: REFERRING PHYSICIAN: ANGIE SHAH MD DATE OF SERVICE: 03/13/19 Discharge Plan Patient Name: ROXANNE MYERS Facility: [facility]:[place] : 1960 Planned Disposition: Home Anticipated Discharge Date: Discharge Date: 03/13/2019 Expected LOS: Initial Reviewer: [email or web address] Initial Review Date: 03/12/2019 Generated: 03/13/19 7:32 pm DCP- Discharge Planning Updated by [email or web address]: Carmen Gillespie on 03/12/19 8:[address] Patient Name: ROXANNE MYERS Admission Status: ER Accout number: [id number] Admission Date: 03-11-2019 : 1960 Admission Diagnosis: Attending: OSVALDO SHAH Current LOS: 1 Anticipated DC Date: Planned Disposition: Home Primary Insurance: [employer] KRISTEL Discharge Planning Comments: CM met with patient to complete initial dc planning assessment. CM educated patient on the CM role and verbal consent given by patient to complete assessment. CM verified patient's address, phone number, and emergency contact phone numbers. Patient lives at home alone and reports he is independent in his care. At discharge patient plans to return home and feels this is a safe discharge. CM discussed availability of home health, rehab services, and medical equipment. Patient denied known discharge needs at this time.. . CM will continue to follow and will assist as needed with dc plans/needs. Political Theory Professor: Carmen GillespiePatient Name: ROXANNE MYERS Admission Status: ER Accout number: [id number] Admission Date: 03-11-2019 : 1960 Admission Diagnosis: Attending: OSVALDO SHAH Current LOS: 1 Anticipated DC Date: Planned Disposition: Home Primary Insurance: [employer]IONS [employer] Discharge Planning Comments: Political Theory Professor: Carmen Gillespie DCPIA - Discharge Planning Initial Assessment Updated by [email or web address]: Carmen Gillespie on 03/12/19 9:44 am * Is the patient Alert and Oriented? Yes * How many steps to enter\exit or inside your home? * PCP none * Pharmacy [facility] * Preadmission Environment Home Alone * ADLs Independent * Verbal permission to speak to the caregivers and representatives has been obtained from the patient. N/A * Additional services required to return to the preadmission environment? No * Can the patient safely return to the preadmission environment? Yes * Has this patient been hospitalized within the prior 30 days at any hospital? No Last DP export: 03/12/19 8:51 a Patient Name: ROXANNE MYERS Page [phone] at 1832 All edits/amendments must be made on the electronic document DICTATION DATE: 03/13/191831 BUSINESS SCHOOL DEAN: JOSEPHINE 03/13/191831 RPT#: [id number] DC DATE:03/13/19 STATUS: DIS IN [facility] [address] [place] [address] END OF REPORT
== END 2019-03-13 17:31 | disposition home or self-care (01) | DRG 439 ==
LOC: D.ER 10:55 → D.M3 18:47
PROVIDERS: Family Medicine; ADMIT Emergency Medicine; ATTEND Emergency Medicine
DX: K85.90 Acute pancreatitis without necrosis or infection, unspecified (principal); F17.213 Nicotine dependence, cigarettes, with withdrawal; K52.9 Noninfective gastroenteritis and colitis, unspecified; E86.0 Dehydration; F12.90 Cannabis use, unspecified, uncomplicated; K21.9 Gastro-esophageal reflux disease without esophagitis

== ENCOUNTER 2019-03-21 07:56 | Observation (INO) | payer MEDICAID ==
[2019-03-21] VITALS (9 sets, daily range): BP systolic 133–182; BP diastolic 82–102; BMI 22.5
[~2019-03-21] VITALS: Ht 154.9 cm; Wt 54.0 kg
[~2019-03-21 07:56] MED LIST changes: +Nicoderm [PBKC] TRANSDERM
--- NOTE | 2019-03-21 08:11 | NUR ---
URINE SPECIMEN OBTAINED, LABELED AT BS AND SENT TO LAB
[2019-03-21 08:39] LABS: APPEARANCE HAZY (CLEAR); COLOR YELLOW (YELLOW); SPECIFIC GRAVITY 1.025 (1.005-1.020)
[2019-03-21 08:42] LABS: BILIRUBIN NEGATIVE (NEGATIVE); EPITHELIAL CELLS 0-5 /hpf (0-5); GLUCOSE NEGATIVE (NEGATIVE); KETONE LARGE mg/dL (NEGATIVE); NITRITE NEGATIVE (NEGATIVE); PROTEIN TRACE mg/dL (NEGATIVE); RED CELLS - URINE OCC /hpf (0-5); UROBILINOGEN NORMAL (NORMAL); WHITE CELLS - URINE 0-5 /hpf (0-5)
[2019-03-21 08:43] LABS: BACTERIA FEW /hpf (NONE SEEN); HYALINE CAST 0-5 /lpf (NONE SEEN); MUCUS <1+ /lpf (NONE SEEN)
[2019-03-21 08:47] LABS: ALBUMIN 3.4 g/dL (3.4-5.0); ALKALINE PHOSPHATASE 63 U/L (46-116); ALT (SGPT) 20 U/L (10-68); BILIRUBIN - TOTAL 1.19 mg/dL (0.2-1.3); CALC OSMOLALITY 272 mosm/kg (275-300); CARBON DIOXIDE 19.8 mmol/L (21.0-32.0); CHLORIDE - SERUM 97 mmol/L (98-107); CREATININE - SERUM 1.2 mg/dL (0.6-1.3); PROTEIN - SERUM 6.8 g/dL (6.4-8.2); SODIUM 136 mmol/L (136-145); UREA NITROGEN 22 mg/dL (7-18); eGFR NON AFRICAN AMERICAN 66 mL/min (90-120)
[2019-03-21 08:49] LABS: GLUCOSE 70 mg/dL (74-106)
[2019-03-21 08:50] LABS: AMYLASE - SERUM 69 U/L (25-115); LIPASE 87 U/L (73-393); TROPONIN-I < 0.017 ng/mL (0.000-0.060)
[2019-03-21 08:52] LABS: BASOPHILS 0.2 % (0-2); EOSINOPHILS 0.3 % (0-7); HEMATOCRIT 39.7 % (42.0-54.0); HEMOGLOBIN 12.8 g/dL (13.5-17.5); IMMATURE GRANULOCYTES 0.3 % (0-5); LYMPHOCYTES 11.8 % (15-50); MCH 25.9 pg (26.0-34.0); MCHC 32.2 g/dL (31.0-37.0); MCV 80.4 fL (80.0-100.0); MEAN PLATELET VOLUME 8.3 fL (7.4-10.4); MONOCYTES 12.6 % (2-11); NEUTROPHILS 74.8 % (40-80); PLATELET COUNT 321 10x3/uL (130-400); RBC 4.94 10x6/uL (4.20-6.10); RDW 20.5 % (11.5-14.5); WBC 9.9 10x3/uL (4.8-10.8)
--- NOTE | 2019-03-21 10:26 | NUR ---
TO CT VIA STRETCHER WITH [employer]
--- NOTE | 2019-03-21 11:57 | NUR ---
PT C/O NAUSEA. MED PER PRN ORDERS
--- NOTE | 2019-03-21 12:19 | NUR ---
ATTEMPTED TO CALL REPORT, RN UNAVAILABLE
--- NOTE | 2019-03-21 13:01 | NUR ---
ATTEMPTED TO CALL REPORT RN UNAVAILABLE
--- NOTE | 2019-03-21 13:10 | NUR ---
REPORT CALLED TO BUCK GARCIA BY SBAR FORMAT
--- NOTE | 2019-03-21 13:11 | NUR ---
TRANSSPORTED TO ROOM #2106 CONDITION STABLE.
--- NOTE | 2019-03-21 13:25 | NUR ---
BROUGHT BY W/C FROM ER BUT HE ASKED IF HE CAN CLEAN HIS UPPER BODY FIRST BEFORE ANSWERING ANY QUESTIONS OR LETTING ME ASSESS HIM. I DID ASK HIM TO PLEASE NOT GET SALINE LOCK WET AND CALL WHEN HE IS READY. HE IS AT THE SINK AT THIS TIME
--- NOTE | 2019-03-21 13:56 | NUR ---
ALERT STATES HE IS READY NOW. ORIENT TO ROOM AND IS AWARE OF HOW TO USE CL. AMBULATES WITHOUT DIFF. SALINE LOCK IN RIGHT A/C CONNECTED WITH NS AT 125CC/HR RESP EVEN WITHOUT LABOR. BBS ARE CLEAR. ABDOMEN IS SOFT WITH BS IN ALL QUADS. STATES HE HAS BEEN HAVING LOOSE STOOLS AND VOMITING ON AND OFF SINCE MONDAY. HE IS TENDER IN LEFT UPPER QUAD. DENIES ANY CURRENT NEEDS.
[2019-03-21 14:30] LABS: % SATURATION 81 % (15-55); IRON 289 ug/dl (35-150); TOTAL IRON BIND CAPACITY 356 ug/dl (260-445); UNSAT IRON BIND CAPACITY 67 ug/dl (150-375)
[2019-03-21 14:31] LABS: APTT 25.2 SECONDS (22.8-39.4); INR 1.02 (0.85-1.17); PROTIME 12.9 SECONDS (11.6-15.0)
--- NOTE | 2019-03-21 14:46 | NUR ---
HE REFUSES SCD'S DUE TO HE USES BATHROOM AND DOES NOT WANT TO TANGLE UP IN THEM. VERBAL EDUCATION WAS DONE ON THERE USE.
[2019-03-21 15:25] LABS: UDS - AMPHET POSITIVE QUAL (NEGATIVE); UDS - BARB NEGATIVE QUAL (NEGATIVE); UDS - BENZO NEGATIVE QUAL (NEGATIVE); UDS - COCAINE POSITIVE QUAL (NEGATIVE); UDS - OPIATE POSITIVE QUAL (NEGATIVE); UDS - PCP NEGATIVE QUAL (NEGATIVE); UDS - THC POSITIVE QUAL (NEGATIVE)
--- NOTE | 2019-03-21 16:43 | NUR ---
HE DOES NOT WANT TELEMETRY ON AT THIS TIME. HE SAYS I ALREADY HAVE TO KEEP UP WITH THE IV.
--- NOTE | 2019-03-21 19:15 | NUR ---
PT ALERT AND ORIENTED. HAS RIGHT AC THAT IS PATENT AND INFUSING NS AT 125. PT REQUESTED A SHOWER. PROVIDED SHOWER PRODUCTS. DENIES PAIN AT THIS TIME. PROVIDED PATIENT WITH [employer] PER REQUEST. DENIES FURTHER ISSUES AT THIS TIME. HAS CALL LIGHT IN REACH AND PROVIDES RETURN DEMONSTRATION ON HOW TO USE EFFECTIVELY. REFUSES SCD'S AND TELEMTRY AT THIS TIME. CPOC.
[2019-03-22] VITALS: BP 135/88
[2019-03-22 03:52] LABS: BASOPHILS 0.2 % (0-2); EOSINOPHILS 1.3 % (0-7); HEMATOCRIT 32.8 % (42.0-54.0); HEMOGLOBIN 10.6 g/dL (13.5-17.5); IMMATURE GRANULOCYTES 0.2 % (0-5); LYMPHOCYTES 20.9 % (15-50); MCH 25.7 pg (26.0-34.0); MCHC 32.3 g/dL (31.0-37.0); MCV 79.6 fL (80.0-100.0); MEAN PLATELET VOLUME 7.9 fL (7.4-10.4); MONOCYTES 17.6 % (2-11); NEUTROPHILS 59.8 % (40-80); PLATELET COUNT 291 10x3/uL (130-400); RBC 4.12 10x6/uL (4.20-6.10); RDW 20.4 % (11.5-14.5)
[2019-03-22 03:53] LABS: WBC 4.5 10x3/uL (4.8-10.8)
[2019-03-22 04:00] VITALS: BP 130/87
[2019-03-22 04:04] LABS: CALC OSMOLALITY 267 mosm/kg (275-300); CALCIUM 7.8 mg/dL (8.5-10.1); CARBON DIOXIDE 19.6 mmol/L (21.0-32.0); CHLORIDE - SERUM 105 mmol/L (98-107); CREATININE - SERUM 0.8 mg/dL (0.6-1.3); GLUCOSE 83 mg/dL (74-106); POTASSIUM - SERUM 3.8 mmol/L (3.5-5.1); SODIUM 135 mmol/L (136-145); UREA NITROGEN 9 mg/dL (7-18); eGFR NON AFRICAN AMERICAN > 90 mL/min (90-120)
--- NOTE | 2019-03-22 07:00 | NUR ---
REPORT RECEIVED. HE IS ASLEEP AT THIS TIME. RESP EVEN WITHOUT LABOR. CL IN REACH. BED IN LOWEST POSITION AND LOCKED.
[2019-03-22 08:21] VITALS: BP 144/94
--- NOTE | 2019-03-22 10:30 | NUR ---
HE REFUSES TO WEAR TELEMETRY OR SCD'S. STATES HIS STOMACH DOES NOT HURT BAD TODAY. NO N/V OR LOOSE STOOLS NOTED
[2019-03-22 12:09] VITALS: BP 136/83
[2019-03-22 12:43] VITALS: Ht 154.9 cm; Wt 54.0 kg
[2019-03-22] MEDS ORDERED: CARAFATE1 G PO (12:57)
--- NOTE | 2019-03-22 16:30 | NUR ---
DISCHARGE INSTRUCTIONS EXPLAINED IN DETAIL TO HIM INCLUDING TO STOP DRUG USE. SALINE LOCK D/C WITH CATH TIP INTACT NO BLEEDING. HE IS AWARE TO GO GET NEW SCRIPT FOR CARAFATE. HE REFUSED W/C TRANSPORT AND LEFT WALKING TO ER EXIT TO CATCH THE NEXT BUS.
--- NOTE | 2019-03-22 17:06 | MORECARE ---
CASE MANAGEMENT DISCHARGE SUMMARY PATIENT: ROXANNE MYERS UNIT: [id number] ADM DATE: 03/21/19 AGE: 59 : 62 SEX: M ROOM/BED: D.2106 AUTHOR: BRYSON VANCE PHYSICIAN: REFERRING PHYSICIAN: LAMONTE BARLOW MD DATE OF SERVICE: 03/22/19 Discharge Plan Patient Name: ROXANNE MYERS Facility: [facility]:[place] : 1960 Planned Disposition: Home Anticipated Discharge Date: 03/22/19 Discharge Date: 03/22/2019 Expected LOS: 1 Initial Reviewer: [email or web address] Initial Review Date: 03/22/2019 Generated: 03/22/19 6:05 pm Patient Name: ROXANNE MYERS Page 62074 at 1706 All edits/amendments must be made on the electronic document DICTATION DATE: 03/22/191704 ENVIRONMENTAL ENGINEERING PROFESSOR: JOSEPHINE 03/22/191704 RPT#: [id number] DC DATE:03/22/19 STATUS: DIS IN [facility] [address] [place] [address] END OF REPORT
== END 2019-03-22 16:30 | disposition home or self-care (01) ==
LOC: D.ER 07:56 → D.M2 11:56 → OBSVTIME 12:12 → D.M2 03-22 16:30
PROVIDERS: Family Medicine; ADMIT Internal Medicine Nephrology; ATTEND Internal Medicine Nephrology
DX: K52.9 Noninfective gastroenteritis and colitis, unspecified (principal); D64.9 Anemia, unspecified; N17.9 Acute kidney failure, unspecified; K21.9 Gastro-esophageal reflux disease without esophagitis; F10.10 Alcohol abuse, uncomplicated; F17.203 Nicotine dependence unspecified, with withdrawal

== ENCOUNTER → 2019-04-19 12:19 | Outpatient (CLI) | payer OTHER ==
[2019-03-22 12:43] VITALS: BMI 22.4
== END | disposition home or self-care (01) ==
LOC: D.RAD 12:19
PROVIDERS: ATTEND Pediatrics
DX: M54.5 Low back pain (principal)

== ENCOUNTER 2019-04-19 21:17 | Emergency (ER) | payer MEDICAID ==
[~2019-04-19] VITALS: Ht 154.9 cm; Wt 52.3 kg
[2019-04-19 21:19] VITALS: Ht 154.9 cm; Wt 52.3 kg
[2019-04-19 21:53] LABS: ALBUMIN 2.9 g/dL (3.4-5.0); ANION GAP 19.5 mmol/L (8-16); BILIRUBIN - TOTAL 0.21 mg/dL (0.2-1.3); CALCIUM 7.9 mg/dL (8.5-10.1); CARBON DIOXIDE 19.1 mmol/L (21.0-32.0); CREATININE - SERUM 1.2 mg/dL (0.6-1.3); MAGNESIUM - SERUM 1.9 mg/dL (1.8-2.4); POTASSIUM - SERUM 3.6 mmol/L (3.5-5.1); PROTEIN - SERUM 5.8 g/dL (6.4-8.2)
[2019-04-19 22:06] LABS: BASOPHILS 0.1 % (0-2); EOSINOPHILS 0.2 % (0-7); HEMOGLOBIN 10.3 g/dL (13.5-17.5); IMMATURE GRANULOCYTES 0.4 % (0-5); LYMPHOCYTES 11.1 % (15-50); MCHC 32.2 g/dL (31.0-37.0); MCV 80.8 fL (80.0-100.0); MEAN PLATELET VOLUME 8.2 fL (7.4-10.4); MONOCYTES 8.9 % (2-11); NEUTROPHILS 79.3 % (40-80); PLATELET COUNT 240 10x3/uL (130-400); RBC 3.96 10x6/uL (4.20-6.10); RDW 20.6 % (11.5-14.5); WBC 8.9 10x3/uL (4.8-10.8)
[2019-04-19 23:27] LABS: APPEARANCE CLEAR (CLEAR); BILIRUBIN NEGATIVE (NEGATIVE); COLOR COLORLESS (YELLOW); GLUCOSE NEGATIVE (NEGATIVE); KETONE NEGATIVE (NEGATIVE); NITRITE NEGATIVE (NEGATIVE); PROTEIN NEGATIVE (NEGATIVE); SPECIFIC GRAVITY 1.005 (1.005-1.020); UROBILINOGEN NORMAL (NORMAL)
[2019-04-19 23:36] LABS: UDS - AMPHET POSITIVE QUAL (NEGATIVE); UDS - BARB NEGATIVE QUAL (NEGATIVE); UDS - BENZO NEGATIVE QUAL (NEGATIVE); UDS - COCAINE NEGATIVE QUAL (NEGATIVE); UDS - OPIATE POSITIVE QUAL (NEGATIVE); UDS - PCP NEGATIVE QUAL (NEGATIVE); UDS - THC POSITIVE QUAL (NEGATIVE)
[2019-04-20 00:42] VITALS: BP 132/85
== END 2019-04-20 00:43 | disposition home or self-care (01) ==
LOC: D.ER 21:17
PROVIDERS: Family Medicine
DX: F41.0 Panic disorder [episodic paroxysmal anxiety] (principal)

== ENCOUNTER 2019-04-20 01:01 | Emergency (ER) | payer MEDICAID ==
[~2019-04-20] VITALS: Ht 154.9 cm; Wt 52.2 kg
[2019-04-20 01:06] VITALS: Ht 154.9 cm; Wt 52.2 kg
[2019-04-20 06:49] VITALS: BP 132/70
== END 2019-04-20 06:50 | disposition home or self-care (01) ==
LOC: D.ER 01:01
DX: F15.129 Other stimulant abuse with intoxication, unspecified (principal)

== ENCOUNTER 2019-05-30 17:58 | Emergency (ER) | payer MEDICAID ==
[~2019-05-30] VITALS: Ht 154.9 cm; Wt 54.5 kg
[2019-05-30 18:06] VITALS: Ht 154.9 cm; Wt 54.5 kg
[2019-05-30 18:27] LABS: APPEARANCE HAZY (CLEAR); BILIRUBIN NEGATIVE (NEGATIVE); COLOR YELLOW (YELLOW); GLUCOSE NEGATIVE (NEGATIVE); KETONE NEGATIVE (NEGATIVE); NITRITE NEGATIVE (NEGATIVE); PROTEIN 1+ mg/dL (NEGATIVE); UDS - AMPHET NEGATIVE QUAL (NEGATIVE); UDS - BARB NEGATIVE QUAL (NEGATIVE); UDS - BENZO POSITIVE QUAL (NEGATIVE); UDS - COCAINE POSITIVE QUAL (NEGATIVE); UDS - OPIATE NEGATIVE QUAL (NEGATIVE); UDS - PCP NEGATIVE QUAL (NEGATIVE); UDS - THC POSITIVE QUAL (NEGATIVE); UROBILINOGEN NORMAL (NORMAL)
[2019-05-30 18:28] LABS: AMORPHOUS SEDIMENT >1+ /lpf (NONE SEEN); BACTERIA FEW /hpf (NEGATIVE); EPITHELIAL CELLS 0-5 /hpf (0-5); RED CELLS - URINE 0-5 /hpf (0-5); WHITE CELLS - URINE 0-5 /hpf (NEGATIVE)
[2019-05-30 18:37] LABS: BASOPHILS 1.3 % (0-2); EOSINOPHILS 0.9 % (0-7); HEMATOCRIT 34.6 % (42.0-54.0); HEMOGLOBIN 10.3 g/dL (13.5-17.5); IMMATURE GRANULOCYTES 0.9 % (0-5); LYMPHOCYTES 35.9 % (15-50); MCH 25.8 pg (26.0-34.0); MCHC 29.8 g/dL (31.0-37.0); MCV 86.5 fL (80.0-100.0); MEAN PLATELET VOLUME 8.2 fL (7.4-10.4); MONOCYTES 12.5 % (2-11); NEUTROPHILS 48.5 % (40-80); PLATELET COUNT 382 10x3/uL (130-400); RDW 18.5 % (11.5-14.5); WBC 8.6 10x3/uL (4.8-10.8)
[2019-05-30 18:53] LABS: ALBUMIN 3.3 g/dL (3.4-5.0); ANION GAP 30.2 mmol/L (8-16); BILIRUBIN - TOTAL 0.12 mg/dL (0.2-1.3); CARBON DIOXIDE 10.9 mmol/L (21.0-32.0); CREATININE - SERUM 1.5 mg/dL (0.6-1.3); MAGNESIUM - SERUM 2.4 mg/dL (1.8-2.4); POTASSIUM - SERUM 4.1 mmol/L (3.5-5.1); PROTEIN - SERUM 7.3 g/dL (6.4-8.2)
[2019-05-30 22:10] VITALS: BP 131/93
== END 2019-05-30 22:10 | disposition home or self-care (01) ==
LOC: D.ER 17:58
PROVIDERS: Family Medicine
DX: F14.90 Cocaine use, unspecified, uncomplicated (principal); F12.90 Cannabis use, unspecified, uncomplicated; F19.90 Other psychoactive substance use, unspecified, uncomplicated

== ENCOUNTER 2019-11-29 12:48 | Emergency (ER) | payer MEDICAID ==
[~2019-11-29] VITALS: Ht 154.9 cm; Wt 52.3 kg
[2019-11-29 12:58] VITALS: Ht 154.9 cm; Wt 52.3 kg
[2019-11-29 13:52] LABS: BASOPHILS 0.2 % (0-2); EOSINOPHILS 0.4 % (0-7); HEMATOCRIT 40.3 % (42.0-54.0); HEMOGLOBIN 12.3 g/dL (13.5-17.5); IMMATURE GRANULOCYTES 0.2 % (0-5); LYMPHOCYTES 24.8 % (15-50); MCH 26.7 pg (26.0-34.0); MCHC 30.5 g/dL (31.0-37.0); MCV 87.4 fL (80.0-100.0); MONOCYTES 8.7 % (2-11); NEUTROPHILS 65.7 % (40-80); PLATELET COUNT 325 10x3/uL (130-400); RBC 4.61 10x6/uL (4.20-6.10); RDW 19.2 % (11.5-14.5); WBC 4.8 10x3/uL (4.8-10.8)
[2019-11-29 13:59] LABS: CALC OSMOLALITY 275 mosm/kg (275-300); CALCIUM 8.4 mg/dL (8.5-10.1); CARBON DIOXIDE 23.5 mmol/L (21.0-32.0); CHLORIDE - SERUM 103 mmol/L (98-107); CREATININE - SERUM 1.2 mg/dL (0.6-1.3); GLUCOSE 118 mg/dL (74-106); POTASSIUM - SERUM 4.3 mmol/L (3.5-5.1); SODIUM 136 mmol/L (136-145); UREA NITROGEN 22 mg/dL (7-18); eGFR NON AFRICAN AMERICAN 66 mL/min (90-120)
[2019-11-29 14:08] LABS: ALBUMIN 3.6 g/dL (3.4-5.0); ALKALINE PHOSPHATASE 87 U/L (30-120); ALT (SGPT) 31 U/L (10-68); AMYLASE - SERUM 108 U/L (25-115); BILIRUBIN - TOTAL 0.25 mg/dL (0.2-1.3); LIPASE 192 U/L (73-393); PROTEIN - SERUM 7.8 g/dL (6.4-8.2)
[2019-11-29 14:13] LABS: TROPONIN-I < 0.017 ng/mL (0.000-0.060)
[2019-11-29 14:27] LABS: BILIRUBIN NEGATIVE (NEGATIVE); GLUCOSE NEGATIVE (NEGATIVE); KETONE NEGATIVE (NEGATIVE); NITRITE NEGATIVE (NEGATIVE); SPECIFIC GRAVITY 1.025 (1.005-1.020)
[2019-11-29 14:29] LABS: BACTERIA FEW /hpf (NEGATIVE); EPITHELIAL CELLS 0-5 /hpf (0-5); GRANULAR CAST RARE /lpf (NONE SEEN); HYALINE CAST 0-5 /lpf (NONE SEEN); RED CELLS - URINE OCC /hpf (0-5); WHITE CELLS - URINE OCC /hpf (NEGATIVE)
[2019-11-29] MEDS ORDERED: PROTONIX40 MG PO (14:44)
[2019-11-29] MEDS ORDERED: ZOFRAN ODT4 MG/UDTAB PO (14:44)
[2019-11-29] MEDS ORDERED: PEPCID40 MG PO (14:44)
[2019-11-29 15:20] VITALS: BP 123/86
== END 2019-11-29 15:21 | disposition home or self-care (01) ==
LOC: D.ER 12:48
PROVIDERS: Family Medicine
DX: K29.70 Gastritis, unspecified, without bleeding (principal); Z76.0 Encounter for issue of repeat prescription; R11.0 Nausea; M54.9 Dorsalgia, unspecified

== ENCOUNTER 2020-02-14 04:54 | Emergency (ER) | payer MEDICAID ==
[~2020-02-14] VITALS: Ht 154.9 cm; Wt 68.2 kg
[~2020-02-14 04:54] MED LIST changes: +PEPCID40 MG PO; +ZOFRAN ODT4 MG/UDTAB PO
[2020-02-14 05:11] VITALS: Ht 154.9 cm; Wt 68.2 kg
[2020-02-14 05:42] LABS: ANION GAP 19.3 mmol/L (8-16); CALCIUM 8.2 mg/dL (8.5-10.1); CARBON DIOXIDE 19.1 mmol/L (21.0-32.0); CREATININE - SERUM 1.1 mg/dL (0.6-1.3); POTASSIUM - SERUM 3.4 mmol/L (3.5-5.1)
[2020-02-14 05:49] LABS: BASOPHILS 0 % (0-2); EOSINOPHILS 0.3 % (0-7); HEMATOCRIT 31.8 % (42.0-54.0); HEMOGLOBIN 10.1 g/dL (13.5-17.5); LYMPHOCYTES 22.6 % (15-50); MCH 27.2 pg (26.0-34.0); MCHC 31.8 g/dL (31.0-37.0); MCV 85.5 fL (80.0-100.0); MONOCYTES 13.1 % (2-11); PLATELET COUNT 276 10x3/uL (130-400); RBC 3.72 10x6/uL (4.20-6.10); RDW 20.7 % (11.5-14.5); WBC 3.3 10x3/uL (4.8-10.8)
[2020-02-14 05:51] LABS: ALBUMIN 3.2 g/dL (3.4-5.0); BILIRUBIN - TOTAL 0.16 mg/dL (0.2-1.3); MAGNESIUM - SERUM 2.1 mg/dL (1.8-2.4); PROTEIN - SERUM 6.6 g/dL (6.4-8.2)
[2020-02-14 08:11] VITALS: BP 139/79
== END 2020-02-14 08:12 | disposition home or self-care (01) ==
LOC: D.ER 04:54
PROVIDERS: Family Medicine
DX: R41.82 Altered mental status, unspecified (principal); E87.6 Hypokalemia; F19.10 Other psychoactive substance abuse, uncomplicated

== ENCOUNTER 2020-04-16 15:22 | Emergency (ER) | payer MEDICAID ==
[~2020-04-16] VITALS: Ht 154.9 cm; Wt 51.4 kg
[2020-04-16 15:28] VITALS: Ht 154.9 cm; Wt 51.4 kg
[2020-04-16] MEDS ORDERED: HYDROCODON-ACE1 EAC7 PO (16:44)
[2020-04-16 17:55] VITALS: BP 120/81
== END 2020-04-16 18:41 | disposition home or self-care (01) ==
LOC: D.ER 15:22
DX: S30.0XXA Contusion of lower back and pelvis, initial encounter (principal); M54.5 Low back pain

== ENCOUNTER 2020-05-27 11:09 | Observation (INO) | payer MEDICAID ==
[~2020-05-27] VITALS: Ht 170.2 cm; Wt 50.0 kg
[~2020-05-27 11:09] MED LIST changes: +HYDROCODON-ACE1 EAC7 PO; +NICODERM CQ1 EAC3 TOPICAL
[2020-05-27] MEDS ORDERED: PROTONIX40 MG PO (11:18)
[2020-05-27 12:00] LABS: BASOPHILS 0.1 % (0-2); EOSINOPHILS 0.3 % (0-7); HEMATOCRIT 47.3 % (42.0-54.0); HEMOGLOBIN 15.6 g/dL (13.5-17.5); IMMATURE GRANULOCYTES 0.4 % (0-5); LYMPHOCYTES 14.9 % (15-50); MEAN PLATELET VOLUME 8.3 fL (7.4-10.4); MONOCYTES 9.9 % (2-11); NEUTROPHILS 74.4 % (40-80); PLATELET COUNT 305 10x3/uL (130-400); RDW 17.8 % (11.5-14.5); WBC 7.3 10x3/uL (4.8-10.8)
[2020-05-27 12:01] LABS: BACTERIA FEW HPF (NONE SEEN); BILIRUBIN NEGATIVE (NEGATIVE); EPITHELIAL CELLS 0-5 /hpf (0-5); KETONE MODERATE mg/dL (NEGATIVE); NITRITE NEGATIVE (NEGATIVE); UROBILINOGEN NORMAL mg/dL (< 2); WHITE CELLS - URINE NSEEN HPF (0-1)
[2020-05-27 12:03] LABS: GRANULAR CAST 0-5 LPF (NONE SEEN)
[2020-05-27 12:07] LABS: CALC OSMOLALITY 264 mosm/kg (275-300); CARBON DIOXIDE 20.5 mmol/L (21.0-32.0); CHLORIDE - SERUM 94 mmol/L (98-107); CREATININE - SERUM 1.6 mg/dL (0.6-1.3); GLUCOSE 101 mg/dL (74-106); POTASSIUM - SERUM 5.1 mmol/L (3.5-5.1); SODIUM 128 mmol/L (136-145); UREA NITROGEN 34 mg/dL (7-18); eGFR NON AFRICAN AMERICAN 47 mL/min (90-120)
[2020-05-27 12:16] LABS: ALBUMIN 4.1 g/dL (3.4-5.0); ALKALINE PHOSPHATASE 96 U/L (30-120); ALT (SGPT) 20 U/L (10-68); AMYLASE - SERUM 77 U/L (25-115); BILIRUBIN - TOTAL 0.44 mg/dL (0.2-1.3); LIPASE 77 U/L (73-393); TROPONIN-I < 0.017 ng/mL (0.000-0.060)
[2020-05-27 13:00] VITALS: BP 146/107
[2020-05-27 15:00] VITALS: BP 146/103
--- NOTE | 2020-05-27 17:40 | NUR ---
COVID SWAB COLLECTED ET TO LAB AT THIS TIME.
[2020-05-27 18:00] VITALS: BP 134/85
--- NOTE | 2020-05-27 19:00 | NUR ---
REPORT TO BUCK ROLDAN
--- NOTE | 2020-05-27 19:08 | NUR ---
PT GIVEN SPRITE TO DRINK, DENIES FURTHER NEEDS AT THIS TIME. CALL LIGHT IN REACH. WILL CONTINUE TO MONITOR.
[2020-05-27 19:21] VITALS: BP 141/96
--- NOTE | 2020-05-27 21:24 | NUR ---
PT RESTING EYES CLOSED, RR EVEN AND UNLABORED, PT ON MONITOR AND CALL LIGHT IN REACH.
[2020-05-27 21:31] VITALS: BP 147/96
--- NOTE | 2020-05-27 22:35 | NUR ---
PT RESTING WITH EYES CLOSED, PT AWAKES EASILY TO VERBAL STIMULI. PT DENIES ANY NEEDS AT THIS TIME. CALL LIGHT IN REACH. WILL CONTINUE TO MONITOR.
[2020-05-27 23:24] VITALS: BP 149/98
--- NOTE | 2020-05-27 23:24 | NUR ---
PT GIVEN BLANKET AND PILLOW. DENIES ANY FURTHER NEEDS. CALL LIGHT IN REACH. PT ON MONITOR.
[2020-05-28 00:25] VITALS: BP 135/87
--- NOTE | 2020-05-28 01:23 | NUR ---
500ML YELLOW URINE EMPTIED FROM PT'S URINAL. PT DENIES ANY NEEDS. PT ON MONITOR. CALL LIGHT IN REACH.
[2020-05-28 02:12] VITALS: BP 137/96
--- NOTE | 2020-05-28 03:29 | NUR ---
PT'S PROTONIX DRIP FINISHED AT THIS TIME. ANOTHER BAG STARTED AT SAME CONTINUOUS RATE PER ORDER.
[2020-05-28 04:00] VITALS: BP 142/92
[2020-05-28] MEDS ORDERED: PROZAC20 MG PO (06:18)
[2020-05-28 06:28] VITALS: Ht 170.2 cm; Wt 50.0 kg
[2020-05-28 07:19] LABS: BASOPHILS 0.2 % (0-2); EOSINOPHILS 0.8 % (0-7); HEMATOCRIT 39.4 % (42.0-54.0); HEMOGLOBIN 12.6 g/dL (13.5-17.5); IMMATURE GRANULOCYTES 0.2 % (0-5); LYMPHOCYTES 23.1 % (15-50); MCH 29.4 pg (26.0-34.0); MCV 92.1 fL (80.0-100.0); MEAN PLATELET VOLUME 8.2 fL (7.4-10.4); MONOCYTES 15.2 % (2-11); NEUTROPHILS 60.5 % (40-80); PLATELET COUNT 267 10x3/uL (130-400); RBC 4.28 10x6/uL (4.20-6.10); RDW 18.1 % (11.5-14.5)
[2020-05-28 07:22] LABS: WBC 4.9 10x3/uL (4.8-10.8)
[2020-05-28 07:24] LABS: ANION GAP 12.5 mmol/L (8-16); BILIRUBIN - TOTAL 0.51 mg/dL (0.2-1.3); CALCIUM 8.4 mg/dL (8.5-10.1); CARBON DIOXIDE 22.4 mmol/L (21.0-32.0); CREATININE - SERUM 1.3 mg/dL (0.6-1.3); MAGNESIUM - SERUM 2.2 mg/dL (1.8-2.4); POTASSIUM - SERUM 4.9 mmol/L (3.5-5.1)
[2020-05-28 07:27] LABS: ALBUMIN 2.9 g/dL (3.4-5.0); PROTEIN - SERUM 6.6 g/dL (6.4-8.2)
--- NOTE | 2020-05-28 09:19 | NUR ---
UPON DISCHARGE PATIENT HAS NOT HAD A FLU SHOT. WHEN QUESTIONED HE WANTS ONE. ORDERED.
[2020-05-28 10:17] VITALS: BP 117/83
--- NOTE | 2020-05-28 10:44 | MORECARE ---
CASE MANAGEMENT DISCHARGE SUMMARY PATIENT: TYLER MYERS UNIT: [id number] ADM DATE: 05/27/20 AGE: 60 : 62 SEX: M ROOM/BED: D.2107 AUTHOR: BRYSON VANCE PHYSICIAN: REFERRING PHYSICIAN: NEO WEBB MD DATE OF SERVICE: 05/28/20 Discharge Plan Patient Name: TYLER MYERS Facility: [facility]:[place] : 1960 Planned Disposition: Home Anticipated Discharge Date: 05/28/20 Discharge Date: Expected LOS: 1 Initial Reviewer: [email or web address] Initial Review Date: 05/27/2020 Generated: 05/28/20 11:43 am Patient Name: TYLER MYERS Page [phone] at 1044 All edits/amendments must be made on the electronic document DICTATION DATE: 05/28/20 1043 PUBLICITY AGENT: JOSEPHINE 05/28/20 1043 RPT#: [id number] DC DATE: STATUS: ADM IN [facility] [address] [place] [address] END OF REPORT
--- NOTE | 2020-05-28 12:05 | NUR ---
D/C LEFT AC PIV, TIP INTACT. FLU SHOT ADMINISTERED. DISCHARGE INSTRUCTIONS GIVEN VERBALLY AND HANDOUTS PROVIDED. PRESCRIPTION GIVEN TO PATIENT. PATIENT RIDE AT ER ENTRANCE. TAKEN VIA WHEELCHAIR, REMAINS FREE FROM INJURY.
== END 2020-05-28 11:50 | disposition home or self-care (01) ==
LOC: D.ER 11:09 → D.M2 18:01 → OBSVTIME 18:01 → D.EDHOLD 18:01 → D.M2 18:01
PROVIDERS: Family Medicine; ADMIT Family Medicine; ATTEND Family Medicine
DX: N17.9 Acute kidney failure, unspecified (principal); R10.9 Unspecified abdominal pain; R11.2 Nausea with vomiting, unspecified; E86.0 Dehydration; E87.1 Hypo-osmolality and hyponatremia; K52.9 Noninfective gastroenteritis and colitis, unspecified

== ENCOUNTER 2020-12-17 01:46 | Emergency (ER) | payer MEDICAID ==
[~2020-12-17] VITALS: Ht 170.2 cm; Wt 52.3 kg
[~2020-12-17 01:46] MED LIST changes: +PROZAC20 MG PO
[2020-12-17 01:48] VITALS: Ht 170.2 cm; Wt 52.3 kg
[2020-12-17 02:34] LABS: BASOPHILS 0.3 % (0-2); EOSINOPHILS 0.1 % (0-7); IMMATURE GRANULOCYTES 0.3 % (0-5); LYMPHOCYTE ABS# 1.28 10x3/uL (1.32-3.57); LYMPHOCYTES 18.7 % (15-50); MCHC 34.1 g/dL (31.0-37.0); MCV 93.8 fL (80.0-100.0); MEAN PLATELET VOLUME 8.5 fL (7.4-10.4); MONOCYTES 13.4 % (2-11); NEUTROPHIL ABS# 4.61 10x3/uL (1.78-5.38); NEUTROPHILS 67.2 % (40-80); RBC 4.69 10x6/uL (4.20-6.10); RDW 14.9 % (11.5-14.5); WBC 6.9 10x3/uL (4.8-10.8)
[2020-12-17 02:53] LABS: BILIRUBIN NEGATIVE (NEGATIVE); KETONE MODERATE mg/dL (NEGATIVE); NITRITE NEGATIVE (NEGATIVE); UROBILINOGEN NORMAL mg/dL (< 2)
[2020-12-17 02:54] LABS: PLATELET COUNT 372 10x3/uL (130-400)
[2020-12-17 02:54] LABS: BACTERIA FEW HPF (NONE SEEN); SQUAMOUS EPITHELIAL 0-5 HPF (0-4); WHITE CELLS - URINE 0-5 HPF (0-1)
[2020-12-17 02:55] LABS: CALC OSMOLALITY 264 mosm/kg (275-300); CALCIUM 9.3 mg/dL (8.5-10.1); CARBON DIOXIDE 25.4 mmol/L (21.0-32.0); CHLORIDE - SERUM 94 mmol/L (98-107); CREATININE - SERUM 1.3 mg/dL (0.6-1.3); GLUCOSE 101 mg/dL (74-106); SODIUM 131 mmol/L (136-145); UREA NITROGEN 19 mg/dL (7-18); eGFR NON AFRICAN AMERICAN 60 mL/min (90-120)
[2020-12-17 03:04] LABS: ALBUMIN 3.7 g/dL (3.4-5.0); ALKALINE PHOSPHATASE 79 U/L (30-120); ALT (SGPT) 24 U/L (10-68); BILIRUBIN - TOTAL 0.77 mg/dL (0.2-1.3); LIPASE 63 U/L (73-393); PROTEIN - SERUM 7.8 g/dL (6.4-8.2); TROPONIN-I < 0.017 ng/mL (0.000-0.060)
[2020-12-17] MEDS ORDERED: PEPCID40 MG PO (03:32)
[2020-12-17 04:47] VITALS: BP 169/98
== END 2020-12-17 04:47 | disposition home or self-care (01) ==
LOC: D.ER 01:46
PROVIDERS: Emergency Medicine
DX: R10.13 Epigastric pain (principal); R11.2 Nausea with vomiting, unspecified; K21.9 Gastro-esophageal reflux disease without esophagitis

== ENCOUNTER 2020-12-19 05:09 | Observation (INO) | payer MEDICAID ==
[~2020-12-19] VITALS: Ht 170.2 cm; Wt 68.2 kg
[2020-12-19 06:21] LABS: BASOPHILS 0.1 % (0-2); EOSINOPHILS 0.1 % (0-7); HEMATOCRIT 36.9 % (42.0-54.0); HEMOGLOBIN 12.8 g/dL (13.5-17.5); IMMATURE GRANULOCYTES 0.2 % (0-5); LYMPHOCYTE ABS# 0.73 10x3/uL (1.32-3.57); MCH 32.2 pg (26.0-34.0); MCHC 34.7 g/dL (31.0-37.0); MCV 92.7 fL (80.0-100.0); MEAN PLATELET VOLUME 8.7 fL (7.4-10.4); MONOCYTES 12.5 % (2-11); NEUTROPHIL ABS# 6.34 10x3/uL (1.78-5.38); NEUTROPHILS 78.1 % (40-80); PLATELET COUNT 313 10x3/uL (130-400); RBC 3.98 10x6/uL (4.20-6.10); RDW 14.9 % (11.5-14.5); WBC 8.1 10x3/uL (4.8-10.8)
[2020-12-19 06:30] LABS: CARBON DIOXIDE 22.4 mmol/L (21.0-32.0); CHLORIDE - SERUM 96 mmol/L (98-107); CREATININE - SERUM 2.8 mg/dL (0.6-1.3); POTASSIUM - SERUM 3.3 mmol/L (3.5-5.1); SODIUM 134 mmol/L (136-145); UREA NITROGEN 33 mg/dL (7-18); eGFR NON AFRICAN AMERICAN 25 mL/min (90-120)
[2020-12-19 06:36] LABS: ALBUMIN 3.3 g/dL (3.4-5.0); ALKALINE PHOSPHATASE 64 U/L (30-120); ALT (SGPT) 23 U/L (10-68); BILIRUBIN - TOTAL 0.27 mg/dL (0.2-1.3); PROTEIN - SERUM 6.6 g/dL (6.4-8.2)
[2020-12-19 06:37] LABS: CALC OSMOLALITY 272 mosm/kg (275-300)
[2020-12-19 06:38] LABS: ACETAMINOPHEN < 10.0 ug/mL (10.0-30.0); ALCOHOL - BLOOD (MEDICAL) < 3.0 mg/dL (0.0-10.0); GLUCOSE 55 mg/dL (74-106)
[2020-12-19 07:07] VITALS: BP 100/68
--- NOTE | 2020-12-19 07:17 | NUR ---
PT BLOOD GLUCOSE 147
[2020-12-19 08:07] LABS: UDS - AMPHET POSITIVE QUAL (NEGATIVE); UDS - BARB NEGATIVE QUAL (NEGATIVE); UDS - BENZO POSITIVE QUAL (NEGATIVE); UDS - COCAINE POSITIVE QUAL (NEGATIVE); UDS - OPIATE NEGATIVE QUAL (NEGATIVE); UDS - PCP NEGATIVE QUAL (NEGATIVE); UDS - THC POSITIVE QUAL (NEGATIVE)
[2020-12-19 08:17] LABS: BILIRUBIN NEGATIVE (NEGATIVE); KETONE NEGATIVE (NEGATIVE); NITRITE NEGATIVE (NEGATIVE); SQUAMOUS EPITHELIAL 0-5 HPF (0-4); UROBILINOGEN NORMAL mg/dL (< 2); WHITE CELLS - URINE 0-5 HPF (0-1)
[2020-12-19 08:18] LABS: AMORPHOUS SEDIMENT <1+ LPF (NONE SEEN); BACTERIA MODERATE HPF (NONE SEEN)
[2020-12-19 10:00] VITALS: BP 108/72
[2020-12-19 12:53] VITALS: Ht 170.2 cm; Wt 68.2 kg
[2020-12-19 18:09] VITALS: BP 116/73
--- NOTE | 2020-12-19 19:00 | NUR ---
REPORT FROM WILBER JANE. PT RESTING IN STRECHER RESP EVEN AND UNLABORED. FLUIDS INFUSING.
[2020-12-19 20:00] VITALS: BP 101/67
[2020-12-19 22:51] VITALS: BP 110/66
--- NOTE | 2020-12-19 23:15 | NUR ---
PT USING URINAL AT THIS TIME.
--- NOTE | 2020-12-19 23:30 | NUR ---
PT C/O ACID REFLUX TAKES MEDS AT HOME BUT DIDNT BRING THEM. ROBERT BARRERA PAGED AT THIS TIME.
[2020-12-20 02:00] VITALS: BP 114/70
--- NOTE | 2020-12-20 02:00 | NUR ---
PT RESTING IN BED RESP EVEN AND UNLABORED AT THIS TIME.
--- NOTE | 2020-12-20 04:50 | NUR ---
PT RESTING EYES CLOSED RESP EVEN AND UNLABORED. PT ON MONITOR FLUIDS INFUSING.
[2020-12-20 06:43] LABS: BASOPHILS 0.2 % (0-2); EOSINOPHILS 0.6 % (0-7); HEMOGLOBIN 12.5 g/dL (13.5-17.5); IMMATURE GRANULOCYTES 0.2 % (0-5); LYMPHOCYTES 20.2 % (15-50); MCH 31.7 pg (26.0-34.0); MCHC 33.8 g/dL (31.0-37.0); MCV 93.9 fL (80.0-100.0); MEAN PLATELET VOLUME 8.4 fL (7.4-10.4); MONOCYTES 14.8 % (2-11); NEUTROPHIL ABS# 4.13 10x3/uL (1.78-5.38); RBC 3.94 10x6/uL (4.20-6.10); WBC 6.4 10x3/uL (4.8-10.8)
[2020-12-20 06:44] LABS: PLATELET COUNT 247 10x3/uL (130-400)
[2020-12-20 06:58] VITALS: BP 124/70
[2020-12-20 07:26] LABS: ALBUMIN 2.7 g/dL (3.4-5.0); ANION GAP 12.5 mmol/L (8-16); BILIRUBIN - TOTAL 0.51 mg/dL (0.2-1.3); CALCIUM 8.1 mg/dL (8.5-10.1); CARBON DIOXIDE 23.5 mmol/L (21.0-32.0); PROTEIN - SERUM 5.7 g/dL (6.4-8.2)
[2020-12-20 07:27] LABS: CREATININE - SERUM 1.3 mg/dL (0.6-1.3)
--- NOTE | 2020-12-20 10:08 | NUR ---
DR. URIAS HERE TO SEE PT.
--- NOTE | 2020-12-20 10:20 | NUR ---
PSYCH EVAL DONE BY JIN
[2020-12-20] MEDS ORDERED: CARAFATE1 G PO (13:00)
[2020-12-20 13:55] VITALS: BP 136/78
== END 2020-12-20 14:50 | disposition home or self-care (01) ==
LOC: D.ER 05:09 → OBSVTIME 07:30 → D.EDHOLD 07:30
PROVIDERS: Family Medicine; ADMIT Emergency Medicine; ATTEND Emergency Medicine
DX: N17.9 Acute kidney failure, unspecified (principal); F23 Brief psychotic disorder; F14.10 Cocaine abuse, uncomplicated; F12.10 Cannabis abuse, uncomplicated; F15.10 Other stimulant abuse, uncomplicated; N39.0 Urinary tract infection, site not specified; E86.0 Dehydration; F17.200 Nicotine dependence, unspecified, uncomplicated; R41.82 Altered mental status, unspecified; E87.6 Hypokalemia; R45.6 Violent behavior; F10.10 Alcohol abuse, uncomplicated; Y90.0 Blood alcohol level of less than 20 mg/100 ml

== ENCOUNTER 2021-01-31 08:35 | Emergency (ER) | payer MEDICAID ==
[~2021-01-31] VITALS: Ht 170.2 cm; Wt 72.7 kg
[2021-01-31 08:39] VITALS: Ht 170.2 cm; Wt 72.7 kg
[2021-01-31 09:12] LABS: BASOPHILS 0.2 % (0-2); EOSINOPHILS 0.5 % (0-7); HEMOGLOBIN 13.5 g/dL (13.5-17.5); IMMATURE GRANULOCYTES 0.2 % (0-5); LYMPHOCYTE ABS# 1.52 10x3/uL (1.32-3.57); LYMPHOCYTES 27.5 % (15-50); MCH 31.9 pg (26.0-34.0); MCHC 33.8 g/dL (31.0-37.0); MCV 94.6 fL (80.0-100.0); MEAN PLATELET VOLUME 8.6 fL (7.4-10.4); MONOCYTES 12.3 % (2-11); NEUTROPHIL ABS# 3.27 10x3/uL (1.78-5.38); NEUTROPHILS 59.3 % (40-80); RBC 4.23 10x6/uL (4.20-6.10); RDW 14.4 % (11.5-14.5); WBC 5.5 10x3/uL (4.8-10.8)
[2021-01-31 09:23] LABS: PLATELET COUNT 335 10x3/uL (130-400)
[2021-01-31 09:25] LABS: ALKALINE PHOSPHATASE 62 U/L (30-120); ALT (SGPT) 17 U/L (10-68); AMYLASE - SERUM 80 U/L (25-115); BILIRUBIN - TOTAL 0.48 mg/dL (0.2-1.3); CALC OSMOLALITY 274 mosm/kg (275-300); CALCIUM 8.8 mg/dL (8.5-10.1); CHLORIDE - SERUM 101 mmol/L (98-107); CREATININE - SERUM 1.1 mg/dL (0.6-1.3); GLUCOSE 117 mg/dL (74-106); LIPASE 168 U/L (73-393); POTASSIUM - SERUM 3.4 mmol/L (3.5-5.1); PROTEIN - SERUM 7.1 g/dL (6.4-8.2); SODIUM 136 mmol/L (136-145); UREA NITROGEN 19 mg/dL (7-18); eGFR NON AFRICAN AMERICAN 72 mL/min (90-120)
[2021-01-31 09:26] LABS: TROPONIN-I < 0.017 ng/mL (0.000-0.060)
[2021-01-31 09:59] LABS: ALBUMIN 3.5 g/dL (3.4-5.0); CARBON DIOXIDE 21.7 mmol/L (21.0-32.0)
[2021-01-31] MEDS ORDERED: ZOFRAN ODT4 MG/UDTAB PO (11:02)
[2021-01-31] MEDS ORDERED: FLORASTOR250 MG PO (11:02)
[2021-01-31] MEDS ORDERED: PROTONIX40 MG PO (11:02)
[2021-01-31] MEDS ORDERED: LEVAQUIN750 MG PO (11:02)
[2021-01-31] MEDS ORDERED: FLAGYL500 MG PO (11:02)
[2021-01-31 11:31] LABS: BILIRUBIN NEGATIVE (NEGATIVE); KETONE TRACE mg/dL (< 1+); NITRITE NEGATIVE (NEGATIVE); SQUAMOUS EPITHELIAL 1 HPF (0-4); UROBILINOGEN NORMAL mg/dL (< 2); WHITE CELLS - URINE <1 HPF (0-1)
[2021-01-31 14:17] VITALS: BP 132/92
== END 2021-01-31 14:17 | disposition home or self-care (01) ==
LOC: D.ER 08:35
PROVIDERS: Family Medicine
DX: R10.13 Epigastric pain (principal); R10.9 Unspecified abdominal pain; K52.9 Noninfective gastroenteritis and colitis, unspecified; K21.9 Gastro-esophageal reflux disease without esophagitis; K27.9 Peptic ulcer, site unspecified, unspecified as acute or chronic, without hemorrhage or perforation; I10 Essential (primary) hypertension